=== PATIENT | female | born 1960 | race Caucasian/White ===

== ENCOUNTER → 2019-05-10 07:46 | Outpatient (BNVA) | payer OTHER, SELFPAY | PROVIDERS: Family Provider Nurse Practitioner Family; PCP Nurse Practitioner Family; Visit Provider Counselor Professional | DX: F42.2 Mixed obsessional thoughts and acts (principal); F33.2 Major depressive disorder, recurrent severe without psychotic features; F41.1 Generalized anxiety disorder | CPT/HCPCS: 90834 ==

== ENCOUNTER → 2019-05-22 08:46 | Outpatient (BNVA) | payer OTHER, SELFPAY | PROVIDERS: Family Provider Nurse Practitioner Family; PCP Nurse Practitioner Family; Visit Provider Counselor Professional | DX: F42.2 Mixed obsessional thoughts and acts (principal); F33.2 Major depressive disorder, recurrent severe without psychotic features; F41.1 Generalized anxiety disorder | CPT/HCPCS: 90834 ==

== ENCOUNTER → 2019-11-21 11:02 | Outpatient (BNVA) | payer OTHER, SELFPAY | PROVIDERS: Family Provider Nurse Practitioner Family; PCP Nurse Practitioner Family; Visit Provider Psychiatry & Neurology Psychiatry | DX: F41.1 Generalized anxiety disorder (principal) | CPT/HCPCS: 80061; 83036 ==

== ENCOUNTER → 2020-10-16 11:06 | Outpatient (BNVA) | payer OTHER, SELFPAY ==
[2019-11-23 12:05] VITALS: BP 124/79; BMI 25.1
== END ==
PROVIDERS: Family Provider Nurse Practitioner Family; PCP Nurse Practitioner Family; Visit Provider Psychiatry & Neurology Psychiatry
DX: F41.1 Generalized anxiety disorder (principal); Z79.899 Other long term (current) drug therapy
CPT/HCPCS: 80061; 83036

== ENCOUNTER → 2021-02-06 14:00 | Outpatient (BNVA) | payer BC, SELFPAY ==
[2020-10-17 15:24] VITALS: BP 97/77; BMI 26.7
== END ==
PROVIDERS: Family Provider Nurse Practitioner Family; PCP Nurse Practitioner Family; Referring Provider Physician Assistant Medical; Visit Provider Internal Medicine
DX: E05.90 Thyrotoxicosis, unspecified without thyrotoxic crisis or storm (principal); E04.9 Nontoxic goiter, unspecified; E03.8 Other specified hypothyroidism; Z87.891 Personal history of nicotine dependence
CPT/HCPCS: 99204

== ENCOUNTER 2021-02-21 13:58 | Outpatient (CLI) | payer BC, SELFPAY ==
[2020-10-17 15:24] VITALS: BP 97/77; BMI 26.7
--- NOTE | 2021-02-21 14:06 | MM_ITS ---
WS: [id number] BILATERAL DIGITAL SCREENING MAMMOGRAPHY WITH CAD CLINICAL INFORMATION: SCREENING HISTORY: Screening mammogram. No current complaints. COMPARISON: October 19, 2019 TECHNIQUE: Bilateral CC and MLO views. FINDINGS: The breasts are composed of heterogeneous fibroglandular density tissue, which can limit the detectio n of small underlying mass lesions. Punctate and lucent centered calcifications. No suspicious mass, asymmetry, calcifications, or architectural distortion. No evidence of malignancy. MM/[place] [id number] IMPRESSION: BI-RADS: 2-Benign FOLLOW UP: 1 Year Follow-up Recommend return to annual screening mammography.
== END 2021-02-21 13:59 | disposition home or self-care (01) ==
LOC: RADSHAW 14:03
PROVIDERS: PCP Physician Assistant Medical; Visit Provider Physician Assistant Medical
DX: Z12.31 Encounter for screening mammogram for malignant neoplasm of breast (principal)
CPT/HCPCS: 77067

== ENCOUNTER → 2021-08-08 08:49 | Outpatient (BNVA) | payer BC, SELFPAY ==
[2020-10-17 15:24] VITALS: BP 97/77; BMI 26.7
== END ==
PROVIDERS: PCP Family Medicine; Visit Provider Family Medicine
DX: Z91.09 Other allergy status, other than to drugs and biological substances (principal); E05.90 Thyrotoxicosis, unspecified without thyrotoxic crisis or storm; E03.8 Other specified hypothyroidism; B35.1 Tinea unguium; E04.9 Nontoxic goiter, unspecified; Z85.828 Personal history of other malignant neoplasm of skin
CPT/HCPCS: 80053; 80061; 84439; 84443; 84480; 85025

== ENCOUNTER 2022-04-30 14:37 | Outpatient (CLI) | payer BC, SELFPAY ==
[2020-10-17 15:24] VITALS: BP 97/77; BMI 26.7
--- NOTE | 2022-04-30 14:42 | MM_ITS ---
WS: [id number] BILATERAL 2D TOMOSYNTHESIS DIGITAL SCREENING MAMMOGRAPHY WITH CAD CLINICAL INFORMATION: SCREENING HISTORY: Screening mammogram. No current complaints. COMPARISON: February 21, 2021 and 2019 TECHNIQUE: Bilateral CC and MLO views. FINDINGS: The breasts are composed of heterogeneous fibroglandular density tissue, which can limit the detectio n of small underlying mass lesions. No suspicious mass, asymmetry, calcifications, or architectural d istortion. No evidence of malignancy. Incidental punctate and lucent centered calcifications. Prior b iopsy marker RIGHT breast MM/[place] [id number] IMPRESSION: BI-RADS: 2-Benign FOLLOW UP: 1 Year Follow-up Recommend return to annual screening mammography.
== END 2022-04-30 14:38 | disposition home or self-care (01) ==
LOC: RAD 14:37
PROVIDERS: PCP Family Medicine; Visit Provider Family Medicine
DX: Z12.31 Encounter for screening mammogram for malignant neoplasm of breast (principal)
CPT/HCPCS: 77067

== ENCOUNTER → 2022-10-02 07:41 | Outpatient (BNVA) | payer BC, SELFPAY ==
[2020-10-17 15:24] VITALS: BP 97/77; BMI 26.7
== END ==
PROVIDERS: PCP Family Medicine; Visit Provider Family Medicine
DX: Z13.6 Encounter for screening for cardiovascular disorders (principal); E55.9 Vitamin D deficiency, unspecified
CPT/HCPCS: 80053; 80061; 82306; 85025

== ENCOUNTER 2022-10-12 14:14 | Outpatient (CLI) | payer BC, SELFPAY ==
[2020-10-17 15:24] VITALS: BP 97/77; BMI 26.7
--- NOTE | 2022-10-12 14:30 | XR_ITS ---
WS: [id number] SCREENING DEXA SCAN [employer] CLINICAL INFORMATION: postmenopausal COMPARISON: None. FINDINGS: The L1-L4 bone mineral density measures 0.787 g/cm2. This corresponds to a T score score of -3.3 and Z score of -2.1. Left femoral neck bone mineral density measures 0.779 g/cm2. This corresponds to a T score of -1.8 an d Z score of -0.9. Right femoral neck bone mineral density measures 0.720 g/cm2. This corresponds to a T score -2.3of an d Z score of -1.4. Mean femoral neck bone mineral density measures 0.750 g/cm2. This corresponds to a T score of -2.0 an d Z score of -1.1. XR/XR DEXA axial skeleton* [id number] IMPRESSION: Osteoporosis lumbar spine. Osteopenia femoral necks. Patient's FRAX calculated 10 year probability for major osteoporotic fracture i s 11.8 % and osteoporotic hip fracture is 2.3%.
== END 2022-10-12 14:15 | disposition home or self-care (01) ==
LOC: RAD 14:18
PROVIDERS: PCP Family Medicine; Visit Provider Family Medicine
DX: N95.9 Unspecified menopausal and perimenopausal disorder (principal); M81.0 Age-related osteoporosis without current pathological fracture; M85.88 Other specified disorders of bone density and structure, other site
CPT/HCPCS: 77080

== ENCOUNTER 2022-11-02 09:54 | Outpatient (CLI) | payer BC, SELFPAY ==
[2020-10-17 15:24] VITALS: BP 97/77; BMI 26.7
--- NOTE | 2022-11-02 10:15 | CT_ITS ---
WS: [id number] LDCT LUNG CANCER SCREENING HISTORY: screening TECHNIQUE: Axial imaging performed from the apices to 1 cm below the costophrenic angles. Coronal and sagittal reformats are submitted with axial MIP series. All CT scans at [facility] use at least one of these dose optimization techniques: automated exposure control; mA and/or kV adjustment per patient size (includes targeted exams where dose is matched to clinical indication); or iterativ e reconstruction. DLP: 56.20 mGy.cm DIvol: Mean CTDIvol: 1.00 (mGy) COMPARISON: None available. Diagnostic quality: Satisfactory Lungs: No pulmonary mass or nodule. No endobronchial lesions. Heart: Normal size heart with no pericardial effusion.. Other findings: No mediastinal or hilar adenopathy. Normal size aorta. Small hiatal hernia. No adrena l mass. CT/CT lung screening [id number] IMPRESSION: LUNG-RADS: 1-Negative FOLLOW UP: 12 Month: Continue annual screening with LDCT OTHER FINDINGS (S MODIFIER): None.
== END 2022-11-02 09:55 | disposition home or self-care (01) ==
PROVIDERS: PCP Family Medicine; Visit Provider Family Medicine
DX: Z12.2 Encounter for screening for malignant neoplasm of respiratory organs (principal); Z87.891 Personal history of nicotine dependence
CPT/HCPCS: 71271; 80053; 80061; 82306; 85025

== ENCOUNTER 2022-11-18 08:15 | Day surgery (SDC) | payer BC, SELFPAY ==
[2020-10-17 15:24] VITALS: BP 97/77; BMI 26.7
[2022-11-17 08:27] VITALS: BMI 28.3
--- NOTE | 2022-11-18 08:36 | W.PM.OPSUD ---
Surgery/Procedure H&P Update DATE OF PROCEDURE: November 18, 2022 DATE H&P PERFORMED: 10/21/22 H&P UPDATE INFORMATION: I have reviewed H&P completed within last 30 days, I have examined patient prior to procedure and No changes to prior documentation PLANNED PROCEDURE: Operation Date: 11/18/22 09:00 Proposed Procedures p Colonoscopy 11072,[z12.11(Not Applicable) - Jordon Rubalcava, DO
[2022-11-18] MEDS: sodium chloride 0.9% 1,000 ML 30 ML IV (08:46)
[2022-11-18 08:48] VITALS: BP 117/75; PULSE 72; RESP 18; TEMP 36.9; O2SAT 94
--- NOTE | 2022-11-18 09:05 | ANES.PREANE2 ---
Pre-Anesthetic Assessment Height/Weight: Height 1.55 m Weight 68.039 kg Temp Pulse Resp BP Pulse Ox O2 Del Method 98.5 F 72 18 117/75 94 Room Air 11/18/22 08:48 11/18/22 08:48 11/18/22 08:48 11/18/22 08:48 11/18/22 08:48 11/18/22 08:48 Operation Date: 11/18/22 09:00 Proposed Procedures p Colonoscopy 51001,[z12.11(Not Applicable) - Jordon Rubalcava DO Familial anesthetic complications: None Was Beta Gus taken within 24 hours: N/A Was Clonidine taken within 24 hours: N/A Last intake: Intake Last Liquid Date 11/17/22 Last Liquid Time 22:00 Last Solid Date 11/16/22 Last Solid Time 16:00 Social No alcohol and No tobacco Exam alert, oriented x 3, clear to auscultation bilaterally and regular rate & rhythm Airway Mallampati: Class I Dentition: full CV/HEM Hypertension GI Gastroesophageal Reflux Disease Anesthetic Plan ASA status: 2 Anesthesia: MAC Risk of > 500 ml blood loss (7ml/kg in children): No Medications/Allergies Home Medications Medication Instructions Recorded Confirmed Last Taken Type cetirizine 10 mg capsule (Zyrtec) 10 mg PO QDAY 05/10/19 11/17/22 11/16/22 History flaxseed oil 1,000 mg capsule 1,300 mg PO QDAY 05/10/19 11/17/22 11/16/22 History fluticasone propionate 50 2 spray intranasal QDAY 05/10/19 11/17/22 11/16/22 History mcg/actuation nasal spray,suspension (Allergy Relief (fluticasone)) magnesium 250 mg tablet 250 mg PO .HS 05/10/19 11/17/22 11/16/22 History cyclobenzaprine 10 mg tablet 10 mg PO TID PRN muscle spasm 05/17/20 11/17/22 11/16/22 History meloxicam 7.5 mg tablet (Mobic) 7.5 mg PO DAILY PRN Muscle Pain 10/16/20 11/17/22 11/16/22 History cholecalciferol (vitamin D3) 1,250 See Rx Instructions PO DAILY 12/22/21 11/17/22 11/16/22 History mcg (50,000 unit) capsule tretinoin 0.05 % topical cream 1 applic topical .qhs #45 grams 12/30/21 11/17/22 Unknown Rx cyanocobalamin (vitamin B-12) 5,000 mcg PO DAILY 05/05/22 11/17/22 11/16/22 History 5,000 mcg capsule zinc sulfate 25 mg zinc (110 mg) 25 mg PO DAILY 05/05/22 11/17/22 11/16/22 History tablet (Orazinc) B6 0.85 mg-folic 200 1 tab PO DAILY 06/08/22 11/17/22 11/16/22 History [id number] oral chewable tablet (Neuriva Plus) aripiprazole 15 mg tablet (Abilify) 15 mg PO DAILY #90 tabs 08/24/22 11/17/22 11/16/22 Rx bupropion HCl 300 mg 24 hr tablet, 300 mg PO QAM #90 tabs 08/24/22 11/17/22 11/16/22 Rx extended release (Wellbutrin XL) multivitamin 1 tab PO DAILY 08/24/22 11/17/22 11/16/22 History prazosin 5 mg capsule 5 mg PO .HS #90 caps 08/24/22 11/17/22 11/16/22 Rx sertraline 100 mg tablet (Zoloft) 150 mg PO DAILY #135 tabs 08/24/22 11/17/22 11/16/22 Rx trazodone 100 mg tablet 100 mg PO .HS #90 tabs 08/24/22 11/17/22 11/16/22 Rx azelastine 137 mcg (0.1 %) nasal 2 spray intranasal BID 90 days #90 10/02/22 11/17/22 11/16/22 Rx spray aerosol mL alendronate 70 mg tablet (Fosamax) 70 mg PO .weekly #12 tabs 11/06/22 11/17/22 11/15/22 Rx calcium carbonate 600 mg calcium 1,200 mg PO DAILY 11/18/22 11/18/22 11/16/22 History (1,500 mg) tablet (Calcium) Allergies Allergy/AdvReac Type Severity Reaction Status Date / Time phenazopyridine Allergy Severe Rash Verified 11/17/22 08:16 [From Pyridium] bodywide, Throat swelled bacitracin AdvReac Intermediate Rash Verified 11/17/22 08:16 [From Neosporin ([id number])] ibuprofen AdvReac Intermediate Diarrhea & Verified 11/17/22 08:16 Vomiting neomycin AdvReac Intermediate Rash Verified 11/17/22 08:16 [From Neosporin ([id number])] polymyxin B AdvReac Intermediate Rash Verified 11/17/22 08:16 [From Neosporin ([id number])] Current Medications Generic Name Dose Route Start Last Admin Trade Name Freq PRN Reason Stop Dose Admin Sodium Chloride 1,000 mls @ 30 mls/hr 11/18/22 08:30 11/18/22 08:46 Sodium Chloride 0.9% IV 11/19/22 08:29 30 mls/hr .Q24H RIKA Administration PFSH Anesthesia Medical History Basal cell carcinoma of skin of face Biceps tendonosis of left shoulder Carpal tunnel syndrome of left wrist Carpal tunnel syndrome of right wrist 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 Eye injury Right eye H/O needle biopsy Of right breast - benign History of chicken pox 5 or 6 y/o History of sinus problem Left rotator cuff tear Mononucleosis Mumps Psychiatric care Right shoulder injury Rupture of plantaris tendon Squamous cell skin cancer, face Trigger finger Surgical History History of ankle surgery Left History of bunionectomy Right History of total right knee replacement Right History of tubal ligation Family History Mother CAD (coronary artery disease), Onset Age: 60 Hyperlipidemia Hypertension Father Hypertension Grandmother Cancer Colon Cancer Brother Cancer Renal Cancer Social History Smoking and tobacco status: former smoker Quit status (tobacco): has quit using tobacco Year quit tobacco: 05/2015 Second hand smoke exposure: No Smoking risk assessment/counseling performed?: No Alcohol intake: former Desire information about alcohol rehabilitation?: No Counseling given: No Substance/Drug Use: never Desire information about substance/drug rehabilitation?: No Counseling given: No Adopted: No Caregiver/support person: No Lives independently: Yes Housing: House Marital status: Number of children: 1 Number of grandchildren: 0 Highest education level completed: Bachelor's Degree service: No Current occupational status: employed 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
[2022-11-18 09:47] VITALS: BP 102/74; PULSE 77; RESP 18; TEMP 36.3; O2SAT 93
[2022-11-18 09:56] VITALS: BP 97/74; PULSE 73; RESP 18; TEMP 36.2; O2SAT 93
--- NOTE | 2022-11-18 10:00 | ANE.PACU2 ---
Inpatient post-anesthesia follow up: Airway intact: Yes Vital signs: Temperature 97.1 F Pulse Rate 73 Respiratory Rate 18 Blood Pressure 97/74 Pulse Oximetry 93 Oxygen Delivery Me thod Room Air Oxygen Flow Rate Fraction of Inspir ed Oxygen Hydration adequate: Yes Nausea and vomiting: No Pain level: 1 Mental status: Baseline
== END 2022-11-18 10:13 | disposition home or self-care (01) ==
PROVIDERS: PCP Family Medicine; Visit Provider Surgery
PROC: 0DJD8ZZ Inspection of Lower Intestinal Tract, Via Natural or Artificial Opening Endoscopic (ICD-10-PCS; CPT 45378; principal; 2022-11-18 09:00)
DX: Z12.11 Encounter for screening for malignant neoplasm of colon (principal); Z87.891 Personal history of nicotine dependence; Z85.828 Personal history of other malignant neoplasm of skin
CPT/HCPCS: 45378; J2704; J7030

== ENCOUNTER → 2022-12-04 15:32 | Outpatient (BNVA) | payer BC, SELFPAY ==
[2020-10-17 15:24] VITALS: BP 97/77; BMI 26.7
== END ==
PROVIDERS: PCP Family Medicine; Visit Provider Family Medicine
DX: R53.83 Other fatigue (principal)
CPT/HCPCS: 84439; 84443

== ENCOUNTER 2022-12-21 14:34 | Outpatient (CLI) | payer BC, SELFPAY ==
[2020-10-17 15:24] VITALS: BP 97/77; BMI 26.7
--- NOTE | 2022-12-21 15:00 | US_ITS ---
WS: [id number] THYROID ULTRASOUND HISTORY: goiter COMPARISON: None available. Right lobe: 1.5 cm x 2.0 cm x 3.5 cm (w x ap x l). Volume: 5.6 cm3. Normal sized gland. There is a hypoechoic well-circumscribed nodule along the inferior posterior RIGH T thyroid. Nodule measures 7 x 4 x 11 mm. This may be a benign lymph node. This is not definitely wit hin the thyroid. Left lobe: 1.3 cm x 1.3 cm x 4.0 cm (w x ap x l). Volume: 3.5 cm3. Normal sized gland. Colloid cysts are subcentimeter. No solid nodule. Isthmus: 0.3 cm. IMPRESSION: 1. Hypoechoic well-circumscribed nodule posterior to the RIGHT thyroid. This may be external to the t hyroid gland. Potentially could represent a small lymph node. Consider follow-up ultrasound in 6 hansel hs. 2. Small colloid cysts LEFT thyroid.
== END 2022-12-21 14:35 | disposition home or self-care (01) ==
LOC: RAD 14:35
PROVIDERS: PCP Family Medicine; Visit Provider Family Medicine
DX: E04.9 Nontoxic goiter, unspecified (principal); E04.1 Nontoxic single thyroid nodule
CPT/HCPCS: 76536

== ENCOUNTER 2023-01-13 14:00 | Outpatient (CLI) | payer BC, SELFPAY ==
[2020-10-17 15:24] VITALS: BP 97/77; BMI 26.7
== END 2023-01-13 14:01 | disposition home or self-care (01) ==
LOC: SLEEP 01-18 09:55
PROVIDERS: PCP Family Medicine; Visit Provider Family Medicine
DX: G47.33 Obstructive sleep apnea (adult) (pediatric) (principal); G47.10 Hypersomnia, unspecified
CPT/HCPCS: G0399

== ENCOUNTER 2023-05-31 15:19 | Outpatient (CLI) | payer BC, SELFPAY ==
[2020-10-17 15:24] VITALS: BP 97/77; BMI 26.7
--- NOTE | 2023-05-31 15:22 | MM_ITS ---
WS: [id number] BILATERAL 2D DIGITAL SCREENING MAMMOGRAPHY WITH CAD CLINICAL INFORMATION: screening HISTORY: Screening mammogram. No current complaints. COMPARISON: 04/30/2022 TECHNIQUE: Bilateral CC and MLO views. FINDINGS: The breasts are composed of heterogeneous fibroglandular density tissue, which can limit the detectio n of small underlying mass lesions. No suspicious mass, asymmetry, calcifications, or architectural d istortion. No evidence of malignancy. Lucent centered calcifications. Stable biopsy clip with adjacen t nodule RIGHT breast. IMPRESSION: MM/[place] [id number] BI-RADS: 2-Benign FOLLOW UP: 1 Year Follow-up Recommend return to annual screening mammography.
== END 2023-05-31 15:20 | disposition home or self-care (01) ==
LOC: RAD 15:20
PROVIDERS: PCP Family Medicine; Visit Provider Family Medicine
DX: Z12.31 Encounter for screening mammogram for malignant neoplasm of breast (principal); R92.323 Mammographic fibroglandular density, bilateral breasts; R92.1 Mammographic calcification found on diagnostic imaging of breast
CPT/HCPCS: 77063; 77067

== ENCOUNTER 2023-06-23 14:56 | Outpatient (CLI) | payer BC, SELFPAY ==
[2020-10-17 15:24] VITALS: BP 97/77; BMI 26.7
--- NOTE | 2023-06-23 15:00 | US_ITS ---
WS: [id number] THYROID ULTRASOUND HISTORY: Nodule to right Thyroid COMPARISON: 12/21/2022 Right lobe: 1.5 cm x 1.5 cm x 3.9 cm (w x ap x l). Volume: 4.2 cm3. Reidentified is the hypoechoic nodule along the posterior surface of the inferior RIGHT thyroid measu ring 7 x 9 x 5 mm. This could be an exophytic thyroid nodule or small posterior lymph node. Due to th e location parathyroid adenoma within the differential. Left lobe: 1.3 cm x 1.5 cm x 3.5 cm (w x ap x l). Volume: 3.2 cm3. Normal sized gland. There are a few very tiny cystic nodules throughout the thyroid. These are most c onsistent with colloid cyst. Isthmus: 0.3 cm. IMPRESSION: 1. No change in size of the hypoechoic well-circumscribed nodule posterior to the inferior RIGHT th yroid. This may be part of the thyroid or posterior to the thyroid gland. Differential includes a sma ll benign lymph node or exophytic thyroid nodule. Due to the location normal parathyroid gland may ap pear similar. 2. Very tiny colloid nodules in the LEFT thyroid.
== END 2023-06-23 14:57 | disposition home or self-care (01) ==
LOC: RAD 14:57
PROVIDERS: PCP Family Medicine; Visit Provider Family Medicine
DX: E04.1 Nontoxic single thyroid nodule (principal)
CPT/HCPCS: 76536

== ENCOUNTER → 2023-10-01 08:56 | Outpatient (BNVA) | payer BC, SELFPAY ==
[2020-10-17 15:24] VITALS: BP 97/77; BMI 26.7
== END ==
PROVIDERS: PCP Family Medicine; Visit Provider Family Medicine
DX: Z13.6 Encounter for screening for cardiovascular disorders (principal); Z01.419 Encounter for gynecological examination (general) (routine) without abnormal findings; E55.9 Vitamin D deficiency, unspecified; Z86.39 Personal history of other endocrine, nutritional and metabolic disease
CPT/HCPCS: 80053; 80061; 82306; 85025; 87624

== ENCOUNTER → 2023-12-27 15:24 | Outpatient (BNVA) | payer BC, SELFPAY ==
[2020-10-17 15:24] VITALS: BP 97/77; BMI 26.7
== END ==
PROVIDERS: PCP Family Medicine
DX: Z96.651 Presence of right artificial knee joint (principal); M25.561 Pain in right knee; Z98.890 Other specified postprocedural states
CPT/HCPCS: 73562

== ENCOUNTER 2024-01-06 14:28 | Outpatient (CLI) | payer BC, SELFPAY ==
[2020-10-17 15:24] VITALS: BP 97/77; BMI 26.7
--- NOTE | 2024-01-06 14:30 | CT_ITS ---
WS: [email or web address] LDCT LUNG CANCER SCREENING TECHNIQUE: Noncontrast CT of the chest with coronal and sagittal reformatted images. CLINICAL INFORMATION: LDCT COMPARISON: 2022 DLP: 46.00 mGy.cm DIvol: Mean CTDIvol: 0.90 (mGy) All CT scans at [facility] use at least one of these dose optimization techniques: automat ed exposure control; mA and/or kV adjustment per patient size (includes targeted exams where dose is matched to clinical indication); or iterative reconstruction. FINDINGS: No new suspicious pulmonary parenchymal normalities. Normal caliber thoracic aorta. No mediastinal or hilar lymphadenopathy. No axillary lymphadenopathy. Adrenal glands are normal. Tiny esophageal hernia. Mild thoracic curve. Mild thoracic kyphosis. CT/CT lung screening [id number] IMPRESSION: LUNG-RADS: 1-Negative FOLLOW UP: 12 Month: Continue annual screening with LDCT
== END 2024-01-06 14:29 | disposition home or self-care (01) ==
LOC: RAD 14:28
DX: Z12.2 Encounter for screening for malignant neoplasm of respiratory organs (principal); Z87.891 Personal history of nicotine dependence
CPT/HCPCS: 71271

== ENCOUNTER 2024-06-07 15:07 | Outpatient (CLI) | payer BC, SELFPAY ==
[2020-10-17 15:24] VITALS: BP 97/77; BMI 26.7
--- NOTE | 2024-06-07 | MM_ITS ---
WS: [id number] Bilateral screening 3D tomosynthesis digital mammogram, 06/07/2024 3:26 PM Clinical Data: ANNUAL SCREENING Comparison: 05/31/2023, 04/30/2022, 02/21/2021, 11/09/2019, 10/19/2019. Findings: No spiculated masses or clustered calcifications are seen. There are no secondary signs of carcinoma. MM/MM scr BI tomosynthesis [id number] Impression: Negative bilateral mammogram unchanged. Recommend annual screening mammograms. BIRADS: 1 - Negative FOLLOW UP: 1 Year Follow-up DENSITY: The breasts are heterogeneously dense, which may obscure small masses. The CAD loom checker was used
== END 2024-06-07 15:08 | disposition home or self-care (01) ==
PROVIDERS: PCP Family Medicine; Visit Provider Family Medicine
DX: Z12.31 Encounter for screening mammogram for malignant neoplasm of breast (principal); R92.333 Mammographic heterogeneous density, bilateral breasts
CPT/HCPCS: 77063; 77067

== ENCOUNTER → 2024-06-13 15:48 | Outpatient (BNVA) | payer BC, SELFPAY ==
[2020-10-17 15:24] VITALS: BP 97/77; BMI 26.7
== END ==
PROVIDERS: PCP Family Medicine; Visit Provider Family Medicine
DX: S46.812A Strain of other muscles, fascia and tendons at shoulder and upper arm level, left arm, initial encounter (principal); X58.XXXA Exposure to other specified factors, initial encounter
CPT/HCPCS: 80053

== ENCOUNTER → 2024-06-15 14:22 | Outpatient (BNVA) | payer BC, SELFPAY ==
[2020-10-17 15:24] VITALS: BP 97/77; BMI 26.7
== END ==
PROVIDERS: PCP Family Medicine; Visit Provider Family Medicine
DX: E83.52 Hypercalcemia (principal)
CPT/HCPCS: 82310; 83970

== ENCOUNTER 2024-07-11 05:00 | Outpatient (RCR) | payer BC, SELFPAY ==
[2020-10-17 15:24] VITALS: BP 97/77; BMI 26.7
== END 2024-08-09 23:59 | disposition home or self-care (01) ==
LOC: SPT 05:00
PROVIDERS: Visit Provider Family Medicine
DX: S46.812D Strain of other muscles, fascia and tendons at shoulder and upper arm level, left arm, subsequent encounter (principal); X58.XXXD Exposure to other specified factors, subsequent encounter
CPT/HCPCS: 97110; 97140; 97161

== ENCOUNTER 2024-08-10 05:00 | Outpatient (RCR) | payer BC, SELFPAY ==
[2020-10-17 15:24] VITALS: BP 97/77; BMI 26.7
== END 2024-09-01 09:06 | disposition home or self-care (01) ==
LOC: SPT 05:00
PROVIDERS: Visit Provider Family Medicine
DX: S46.812D Strain of other muscles, fascia and tendons at shoulder and upper arm level, left arm, subsequent encounter (principal); X58.XXXD Exposure to other specified factors, subsequent encounter
CPT/HCPCS: 97110; 97164

== ENCOUNTER 2024-11-17 16:22 | Emergency (ER) | payer BC, SELFPAY ==
--- OUTSIDE RECORDS SUMMARY | 2015-10-09 19:00 | XMS_ITS | Continuity of Care Document ---
Author Organization [facility] Address [address] [place] [address] Phone Care Team Providers Care Corrosion Engineer Name Role Phone Teresa Hinojosa Unavailable Unavailable Advance Directives Directive Yes / No Effective Date File Name No Information Encounters Encounter Description Practice Location Reason(s) For Visit Diagnoses Date Provider Providers Copied on Encounter [facility], [address] [facility] [address], [place], [place], [id number], [place] tel:[phone] 50 [facility] No Information [phone] Ivory Moore. [address], [address], [place], [place], [id number], [place]. tel:[phone] Family History Family Member Type Diagnosis Age At Onset No Information Payers Payer name Insurance type Covered constitution party ID Authoriza tion(s) No Information Social History Type Description Quantity Date Captured Comments Sex Female Smoking Status No Information Chief Complaint And Reason For Visit No Information Reason For Referral Reason For Referral No Information History Of Present Illness Encounter Date Complaint History Of Prese nt Illness No Information Functional Status Date Functional Assessmen t No Information Instructions Date Instruction Additional Infor mation No Information Assessments Type Assessment Date No Information Patient Care Teams Name Effective Dates (start - stop) Status Members No Information
[2020-10-17 15:24] VITALS: BP 97/77; BMI 26.7
--- NOTE | 2024-11-17 16:23 | XRR_ITS ---
PROCEDURE INFORMATION: Exam: XR Right Wrist Exam date and time: 11/17/2024 4:31 PM Age: 63 years old Clinical indication: Injury or trauma; Blunt trauma (contusions or hematomas); Injury details: Fall, right wrist pain. ; Additional info: Injury/pain TECHNIQUE: Imaging protocol: Radiologic exam of the right wrist. Views: 3 or more views. COMPARISON: No relevant prior studies available. FINDINGS: Bones/joints: Mildly comminuted transverse fracture involves the distal radial metaphysis. The fracture is moderately impacted and displaced dorsally by 7 mm. No other fractures. No dislocation. Soft tissues: Soft tissue swelling surrounds the wrist. XR/XR wrist RT min 3V* [id number] IMPRESSION: Comminuted distal right radius fracture which is displaced and impacted.
[2024-11-17 16:24] VITALS: BP 130/83; PULSE 108; RESP 16; TEMP 36.8; O2SAT 96; BMI 25.6
--- OUTSIDE RECORDS SUMMARY | 2024-11-17 16:28 | XMS_ITS | Encounter Summary ---
Author Organization [facility] Address [address] [place] [address] Care Team Providers Care Repairing Calibrator Name Role Phone Elizabeth Orzoco MD Primary Care Provider [phone] Encounter Details Date Type Department Care Team (Late st Contact Info) Description 03/13/2019 Lab Requisition [facility] Services [place] [address] [address] Oc Flores MD [address] [place] [address] Social History Tobacco Use Types Packs/Day Years Used Date Smoking Tobacco: Former Cigarettes 1 33 1 981 - 2014 Smokeless Tobacco: Never Alcohol Use Standard Drinks/Week Comments Not Currently 0 (1 standard drink = 0.6 oz pur e alcohol) Comments No Sex and Gender Information Value Date Recorded Sex Assigned at Not on file Legal Sex Female 2:07 PM CDT Gender Identity Not on file Sexual Orientation Not on file documented as of this encounter Plan of Treatment Not on file documented as of this encounter Procedures Procedure Name Priority Date/Time Associated Diagnosis Comments PTH INTACT Routine 03/13/2019 8:09 PM ORDER PICKER BASIC METABOLIC PANEL Routine 03/13/2019 8:09 PM ORDER PICKER documented in this encounter Results * PTH INTACT (03/13/2019 8:09 PM ORDER PICKER) PTH INTACT 47.0 15.0 - 65.0 pg/mL 03/14/2019 9:03 PM ORDER PICKER [facility] Blood Collection / Unknown 03/13/2019 8:09 PM ORDER PICKER 03/13/2019 10:17 PM ORDER PICKER Oc Flores MD CHEMISTRY ORDERABLES Margaret ashly Result [facility] CLIA# [id number] [facility] [place] [address] * (ABNORMAL) BASIC METABOLIC PANEL (03/13/2019 8:09 PM ORDER PICKER) SODIUM 140 136 - 145 mmol/L 03/13/2019 10:53 PM [facility] POTASSIUM 4.4 3.5 - 5.1 mmol/L 03/13/2019 10:53 PM [facility] CHLORIDE 104 98 - 107 mmol/L 03/13/2019 10:53 PM [facility] CO2 27 22 - 29 mmol/L 03/13/2019 10:53 PM [facility] CALCIUM 10.7(H) 8.6 - 10.0 mg/dL 03/13/2019 10:53 PM [facility] BUN 16 6 - 20 mg/dL 03/13/2019 10:53 PM [facility] CREATININE 0.70 0.51 - 0.95 mg/dL 03/13/2019 10:53 PM [facility] GLUCOSE 92 74 - 99 mg/dL 03/13/2019 10:53 PM [facility] GFR >60 >=60 mL/min/1.7 3 sq meter 03/13/2019 10:53 PM [facility] Comment: eGFR has not been validated for use in the elderly (> 70 years of age), women, patients with serious co-morbid conditions, or persons with extremes of body size or muscle mass and should also be interpreted with caution in patients with acute kidney failure, dialysis dependent patients, patients reporting exceptional dietary intake (e.g. vegetarian diet, high protein diets, creatine supplementation), and patients with severe liver disease. Based on National Kidney Disease Education Program If patient is , please refer to the GFR result. GFR, >60 >=60 mL/min/1.7 3 sq meter 03/13/2019 10:53 PM ORDER PICKER [facility] ANION GAP 9(L) 12 - 20 mmol/L 03/13/2019 10:53 PM ORDER PICKER [facility] Blood Collection / Unknown 03/13/2019 8:09 PM ORDER PICKER 03/13/2019 10:17 PM ORDER PICKER Oc Flores MD CHEMISTRY ORDERABLES Margaret l Result [facility] CLIA # [id number] [address] [address] documented in this encounter Visit Diagnoses Not on filedocumented in this encounter Additional Health Concerns Infection Onset Date Last Indicated Resolved Time R/O COVID-19 03/04/2020 03/05/2020 03/06/2020 3:31 AM ORDER PICKER documented as of this encounter Care Teams Repairing Calibrator Relationship Specialty Start Date End Date Elizabeth Orozco MD [address] [id number] PCP - General Family Practice 10/26/19 documented as of this encounter
--- OUTSIDE RECORDS SUMMARY | 2024-11-17 16:28 | XMS_ITS | Encounter Summary ---
Author Organization [facility] Address [address] [place] [address] Care Team Providers Care Deck Supervisor Name Role Phone Elizabeth Orozco MD Primary Care Provider [phone]- [phone] Encounter Details Date Type Department Care Team (Late st Contact Info) Description 02/27/2019 Lab Requisition [facility] General Laboratory Services [place] [address] [place] [address] Derrek Sotomayor, DO NO ADDRESS ON FILE Social History Tobacco Use Types Packs/Day Years Used Date Smoking Tobacco: Former Cigarettes 1 33 1 981 - 2013 Smokeless Tobacco: Never Alcohol Use Standard Drinks/Week [...] Procedure Name Priority Date/Time Associated Diagnosis Comments CBC WITH DIFFERENTIAL Routine 02/27/2019 9:00 PM MOCK UP BUILDER TSH Routine 02/27/2019 9:00 PM MOCK UP BUILDER COMPREHENSIVE METABOLIC PANEL Routine 02/27/2019 9:00 PM MOCK UP BUILDER documented in this encounter Results * TSH (02/27/2019 9:00 PM MOCK UP BUILDER) TSH 2.46 0.27 - 4.20 uIU/mL 02/27/2019 11:23 PM MOCK UP BUILDER [facility] Blood Collection / Unknown 02/27/2019 9:00 PM MOCK UP BUILDER 02/27/2019 10:38 PM MOCK UP BUILDER us Derrek Sotomayor DO CHEMISTRY ORDERABLES Final Resu lt [facility] CLIA # [id number] [address] [place] [address] * (ABNORMAL) COMPREHENSIVE METABOLIC PANEL (02/27/2019 9:00 PM MOCK UP BUILDER) SODIUM 142 136 - 145 mmol/L 02/27/2019 11:42 PM [facility] POTASSIUM 4.0 3.5 - 5.1 mmol/L 02/27/2019 11:42 PM [facility] CHLORIDE 104 98 - 107 mmol/L 02/27/2019 11:42 PM [facility] CO2 27 22 - 29 mmol/L 02/27/2019 11:42 PM [facility] CALCIUM 10.9(H) 8.6 - 10.0 mg/dL 02/27/2019 11:42 PM [facility] BUN 15 6 - 20 mg/dL 02/27/2019 11:42 PM [facility] CREATININE 0.70 0.51 - 0.95 mg/dL 02/27/2019 11:42 PM [facility] GLUCOSE 96 74 - 99 mg/dL 02/27/2019 11:42 PM [facility] TOTAL PROTEIN 7.5 6.6 - 8.7 g/dL 02/27/2019 11:42 PM [facility] ALBUMIN 4.4 3.5 - 5.2 g/dL 02/27/2019 11:42 PM [facility] BILIRUBIN TOTAL <0.2 <=1.2 mg/dL 02/27/2019 11:42 PM [facility] ALKALINE PHOSPHATASE 113(H) 35 - 104 U/L 02/27/2019 11:42 PM [facility] AST 19 10 - 35 U/L 02/27/2019 11:42 PM [facility] ALT 12 10 - 35 U/L 02/27/2019 11:42 PM [facility] GFR >60 >=60 mL/min/1.7 3 sq meter 02/27/2019 11:42 PM [facility] Comment: eGFR has not been validated for [...] GFR, >60 >=60 mL/min/1.7 3 sq meter 02/27/2019 11:42 PM [facility] ANION GAP 11(L) 12 - 20 mmol/L 02/27/2019 11:42 PM [facility] Blood Collection / Unknown 02/27/2019 9:00 PM MOCK UP BUILDER 02/27/2019 10:38 PM MOCK UP BUILDER us Derrek Sotomayor DO CHEMISTRY ORDERABLES Final Resu lt [facility] CLIA # [id number] [address] [place] [address] * (ABNORMAL) CBC WITH DIFFERENTIAL (02/27/2019 9:00 PM MOCK UP BUILDER) WBC 7.5 4.0 - 10.0 K/uL 02/27/2019 11:00 PM [facility] RBC 4.25 3.93 - 5.22 M/uL 02/27/2019 11:00 PM [facility] HEMOGLOBIN 12.9 11.2 - 15.7 g/dL 02/27/2019 11:00 PM [facility] HEMATOCRIT 39.6 34.1 - 44.9 % 02/27/2019 11:00 PM [facility] MCV 93.2 79.4 - 94.8 fL 02/27/2019 11:00 PM [facility] MCH 30.4 25.6 - 32.2 pg 02/27/2019 11:00 PM [facility] MCHC 32.6 32.2 - 35.5 g/dL 02/27/2019 11:00 PM [facility] RDW 12.4 11.0 - 14.5 % 02/27/2019 11:00 PM [facility] RDW-STDEV 41.2 36.9 - 56.9 fL 02/27/2019 11:00 PM [facility] PLATELETS 315 163 - 337 K/uL 02/27/2019 11:00 PM [facility] MPV 11.3 10.0 - 14.8 fL 02/27/2019 11:00 PM [facility] NEUTROPHILS 64 34 - 71 % 02/27/2019 11:00 PM [facility] LYMPHOCYTES 25 19 - 52 % 02/27/2019 11:00 PM [facility] MONOCYTES 9 5 - 13 % 02/27/2019 11:00 PM [facility] EOSINOPHILS 2 1 - 6 % 02/27/2019 11:00 PM [facility] BASOPHILS 0 0 - 1 % 02/27/2019 11:00 PM [facility] IMMATURE GRANULOCYTES 0 % 02/27/2019 11:00 PM [facility] NEUTROPHIL ABSOLUTE 4.77 1.56 - 6.13 K/uL 02/27/2019 11:00 PM [facility] LYMPHOCYTE ABSOLUTE 1.88 1.20 - 3.40 K/uL 02/27/2019 11:00 PM [facility] MONOCYTE ABSOLUTE 0.65(H) 0.24 - 0.36 K/uL 02/27/2019 11:00 PM [facility] EOSINOPHIL ABSOLUTE 0.14 0.04 - 0.36 K/uL 02/27/2019 11:00 PM [facility] BASOPHILS ABSOLUTE 0.03 0.01 - 0.08 K/uL 02/27/2019 11:00 PM [facility] IMMATURE GRANULOCYTES ABSOLUTE 0.01 K/uL 02/27/2019 11:00 PM [facility] Blood Collection / Unknown 02/27/2019 9:00 PM MOCK UP BUILDER 02/27/2019 10:38 PM MOCK UP BUILDER us Derrek Sotomayor DO HEMATOLOGY ORDERABLES Final Res ult [facility] # [id number] [address] [address] documented in this encounter Visit Diagnoses Not on filedocumented in this encounter Additional Health Concerns Infection Onset Date Last Indicated Resolved Time R/O COVID-19 03/04/2020 03/05/2020 03/06/2020 3:31 AM MOCK UP BUILDER documented as of this encounter Care Teams Deck Supervisor Relationship Specialty Start Date End Date Elizabeth Orozco MD [address] [phone] PCP - General Family Practice 10/26/19 documented as of this encounter
--- OUTSIDE RECORDS SUMMARY | 2024-11-17 16:28 | XMS_ITS | Encounter Summary ---
Author Organization [facility] Address [address] [place] [address] Care Team Providers Care Armature Winder Helper Repair Name Role Phone Elizabeth Orozco MD Primary Care Provider [phone] Encounter Details Date Type Department Care Team (Late st Contact Info) Description 03/20/2019 Lab Requisition [facility] Laboratory Services [place] [address] [address] Elvira Sanford, [facility] [address] [facility] [address] [place] [address] Social History Tobacco Use Types [...] Procedure Name Priority Date/Time Associated Diagnosis Comments PROTEIN ELECTROPHORESIS W/REFLEX,URINE Routine 03/20/2019 9:41 PM MEASUREMENT AND VERIFICATION ENGINEER CALCITRIOL Routine 03/20/2019 9:41 PM MEASUREMENT AND VERIFICATION ENGINEER TSH Routine 03/20/2019 9:41 PM MEASUREMENT AND VERIFICATION ENGINEER PROTEIN ELECTROPHORESIS W/REFLEX,SERUM Routine 03/20/2019 9:41 PM MEASUREMENT AND VERIFICATION ENGINEER BASIC METABOLIC PANEL Routine 03/20/2019 9:41 PM MEASUREMENT AND VERIFICATION ENGINEER documented in this encounter Results * PROTEIN ELECTROPHORESIS W/REFLEX,URINE (03/20/2019 9:41 PM MEASUREMENT AND VERIFICATION ENGINEER) PROTEIN CONCENTRATION 6 0 - 20 mg/dL 03/23/2019 3:10 PM MEASUREMENT AND VERIFICATION ENGINEER [facility] CREATININE, URINE 73.0 29.0 - 226.0 mg/dL 03/23/2019 3:10 PM MEASUREMENT AND VERIFICATION ENGINEER [facility] Comment:Reference Range vari es with fluid intake and diet. PROTEIN/CREAT RATIO, URINE 0.08 0.00 - 0.19 mg/mg Creatinine 03/23/2019 3:10 PM MEASUREMENT AND VERIFICATION ENGINEER [facility] UPE INTERP See Interpretation Below 03/23/2019 3:10 PM [facility] Urine URINE SPECIMEN OBTAINED BY CLEAN CATCH PROCEDURE / Unknown Collection / Unknown 03/20/2019 9:41 PM MEASUREMENT AND VERIFICATION ENGINEER 03/20/2019 10:33 PM MEASUREMENT AND VERIFICATION ENGINEER Narrative [facility] - 03/23/2019 3:10 PM MEASUREMENT AND VERIFICATION ENGINEER Predominantly albumin demonstrated in random urine specimen. No monoclonal bands present. Urine light chains may not be detected in random urine samples. Interpreted by: Xavier Salgado MD Elvira Sanford INSTRUCTOR PRIVATE URINE ORDERABLES Final R esult [facility] CLIA# [id number] [address] [place] [address] * CALCITRIOL (03/20/2019 9:41 PM MEASUREMENT AND VERIFICATION ENGINEER) CALCITRIOL 51 18 - 78 pg/mL 03/24/2019 1:55 PM MEASUREMENT AND VERIFICATION ENGINEER [facility] Comment: ADDITIONAL INFORMATION This test was developed and its performance characteristics determined by [facility] in a manner consistent with CLIA requirements. This test has not been cleared or approved by the U.S. Food and Drug Administration. Test Performed by: [facility] [address] [place] [address] Instrument Technician Apprentice: Wilton Saleh M.D. Ph.D.; CLIA# [id number] Blood Collection / Unknown 03/20/2019 9:41 PM MEASUREMENT AND VERIFICATION ENGINEER 03/20/2019 10:49 PM MEASUREMENT AND VERIFICATION ENGINEER Elvira Sanford [facility] CHEMISTRY ORDERABLES Fin al Result [facility] - [facility] * PROTEIN ELECTROPHORESIS W/REFLEX,SERUM (03/20/2019 9:41 PM MEASUREMENT AND VERIFICATION ENGINEER) TOTAL PROTEIN 6.9 6.4 - 8.3 g/dL 03/23/2019 3:10 PM MEASUREMENT AND VERIFICATION ENGINEER [facility] Joust [facility] ALBUMIN SPE 4.35 3.50 - 5.30 g/dL 03/23/2019 3:10 PM [facility] ALPHA 1 GLOBULIN SPE 0.17 0.11 - 0.31 g/dL 03/23/2019 3:10 PM [facility] ALPHA 2 GLOBULIN SPE 0.73 0.58 - 1.16 g/dL 03/23/2019 3:10 PM MEASUREMENT AND VERIFICATION ENGINEER [facility] BETA GLOBULIN 0.73 0.59 - 0.88 g/dL 03/23/2019 3:10 PM [facility] GAMMA GLOBULIN 0.93 0.50 - 1.35 g/dL 03/23/2019 3:10 PM MEASUREMENT AND VERIFICATION ENGINEER [facility] SPE INTERP See Interpretation Below 03/23/2019 3:10 PM MEASUREMENT AND VERIFICATION ENGINEER [facility] Blood Collection / Unknown 03/20/2019 9:41 PM MEASUREMENT AND VERIFICATION ENGINEER 03/20/2019 10:49 PM MEASUREMENT AND VERIFICATION ENGINEER Narrative [facility] Joust [facility] - 03/23/2019 3:10 PM MEASUREMENT AND VERIFICATION ENGINEER Essentially normal electrophoretic pattern. Interpreted by: Xavier Salgado MD Elvira Sanford [facility] CHEMISTRY ORDERABLES Fin al Result [facility] CLIA# [id number] [address] [place] [address] * TSH (03/20/2019 9:41 PM MEASUREMENT AND VERIFICATION ENGINEER) TSH 1.26 0.27 - 4.20 uIU/mL 03/21/2019 12:29 AM [facility] Blood Collection / Unknown 03/20/2019 9:41 PM MEASUREMENT AND VERIFICATION ENGINEER 03/20/2019 10:49 PM MEASUREMENT AND VERIFICATION ENGINEER us Elvira Sanford INSTRUCTOR PRIVATE CHEMISTRY ORDERABLES Fin al Result [facility] CLIA # [id number] [address] [place] [address] * (ABNORMAL) BASIC METABOLIC PANEL (03/20/2019 9:41 PM MEASUREMENT AND VERIFICATION ENGINEER) SODIUM 142 136 - 145 mmol/L 03/21/2019 12:29 AM [facility] POTASSIUM 3.9 3.5 - 5.1 mmol/L 03/21/2019 12:29 AM [facility] CHLORIDE 105 98 - 107 mmol/L 03/21/2019 12:29 AM [facility] CO2 26 22 - 29 mmol/L 03/21/2019 12:29 AM [facility] CALCIUM 10.5(H) 8.6 - 10.0 mg/dL 03/21/2019 12:29 AM [facility] BUN 16 6 - 20 mg/dL 03/21/2019 12:29 AM [facility] CREATININE 0.69 0.51 - 0.95 mg/dL 03/21/2019 12:29 AM [facility] GLUCOSE 106(H) 74 - 99 mg/dL 03/21/2019 12:29 AM [facility] GFR >60 >=60 mL/min/1.7 3 sq meter 03/21/2019 12:29 AM [facility] Comment: eGFR has not been validated for [...] GFR, >60 >=60 mL/min/1.7 3 sq meter 03/21/2019 12:29 AM MEASUREMENT AND VERIFICATION ENGINEER [facility] ANION GAP 11(L) 12 - 20 mmol/L 03/21/2019 12:29 AM MEASUREMENT AND VERIFICATION ENGINEER [facility] Blood Collection / Unknown 03/20/2019 9:41 PM MEASUREMENT AND VERIFICATION ENGINEER 03/20/2019 10:49 PM MEASUREMENT AND VERIFICATION ENGINEER Elvira Sanford INSTRUCTOR PRIVATE CHEMISTRY ORDERABLES Fin al Result [facility] CLIA # [id number] [address] [address] documented in this encounter Visit Diagnoses Not on filedocumented in this encounter Additional Health Concerns Infection Onset Date Last Indicated Resolved Time R/O COVID-19 03/04/2020 03/05/2020 03/06/2020 3:31 AM MEASUREMENT AND VERIFICATION ENGINEER documented as of this encounter Care Teams Armature Winder Helper Repair Relationship Specialty Start Date End Date Elizabeth Orozco MD [address] [address] PCP - General Family Practice 10/26/19 documented as of this encounter
--- OUTSIDE RECORDS SUMMARY | 2024-11-17 16:28 | XMS_ITS | Encounter Summary ---
Author Organization [facility] Address [address] [place] [address] Care Team Providers Care Intelligence Senior Sergeant Name Role Phone Elizabeth Orozco MD Primary Care Provider [phone]- [phone] Reason for Referral * MRI (Routine) - Closed Specialty Diagnoses / Procedures Referred By Lexus yeh Referred To Contact Radiology Diagnoses Neuritis Procedures MRI CERVICAL WO CONTRAST MRI CERVICAL W WO CONTRAST John Dong PA [address] [place] [address] Phone: tel: fax: [facility] [address] [facility] [address] [place] [address] Phone: tel: fax: Referral ID Status Reason Start Date Expiration Date Visits Re quested Visits Authorized [id number] Closed 06/09/2019 07/09/2020 [address] MEDIA BUYER Encounter Details Date Type Department Care Team (Late st Contact Info) Description 06/09/2019 Ancillary Orders [facility] Centralized Scheduling [address] [place] [phone] John Dnog PA [address] [place] [address] Neuritis Social History Tobacco Use Types Packs/Day Years Used Date Smoking Tobacco: Former Cigarettes 1 30 0 05/17/1985 - 2015 Smokeless Tobacco: Never Alcohol Use Standard Drinks/Week Comments Not Currently 0 (1 standard drink = 0.6 oz pure alcohol) Have not drank alcohol since 2012. Prior occasional drinker Comments No Sex and Gender Information Value Date Recorded Sex Assigned at Not on file Legal Sex Female 2:07 PM CDT Gender Identity Not on file Sexual Orientation Not on file documented as of this encounter Plan of Treatment Not on file documented as of this encounter Results * MRI CERVICAL WO CONTRAST (06/21/2019 4:30 PM CDT) Anatomical Region Laterality Modality Spine Magnetic Resonan ce 06/21/2019 4:51 PM CDT Impressions 06/23/2019 12:44 PM CDT IMPRESSION: Please see below. Exam: MRI CERVICAL WO CONTRAST Date/Time of Exam: 06/21/2019 4:30 PM Reason For Exam: See Diagnosis. Diagnosis: Neuritis. Technique: Multiplanar imaging of the cervical spine was performed without IV gadolinium. Comparison: None Findings: Normal height and alignment of the cervical vertebrae. No significant abnormal marrow or soft tissue signal change. Normal relationships at the foramen magnum in appearance of the cord. C2-3: Unremarkable C3-4: Mild disc bulge. Left greater than right facet degenerative changes and mild to moderate left foraminal narrowing. The right foramen is patent. C4-5: Left facet degenerative changes and mild to moderate left foraminal narrowing. C5-6: Very mild left foraminal narrowing. C6-7: Mild disc bulge and mild to moderate left foraminal narrowing. C7-T1: Unremarkable. IMPRESSION: 1. Multilevel degenerative changes and left C4-5, C5-6, and C6-7 foraminal narrowing. [id number] Narrative Procedure Note Edgar Dewey MD - 06/23/2019 IMPRESSION: Please see below. Exam: MRI CERVICAL WO CONTRAST Date/Time of Exam: 06/21/2019 4:30 PM Reason For Exam: See Diagnosis. Diagnosis: Neuritis. Technique: Multiplanar imaging of the cervical spine was performed without IV gadolinium. Comparison: None Findings: Normal height and alignment of the cervical vertebrae. No significant abnormal marrow or soft tissue signal change. Normal relationships at the foramen magnum in appearance of the cord. C2-3: Unremarkable C3-4: Mild disc bulge. Left greater than right facet degenerative changes and mild to moderate left foraminal narrowing. The right foramen is patent. C4-5: Left facet degenerative changes and mild to moderate left foraminal narrowing. C5-6: Very mild left foraminal narrowing. C6-7: Mild disc bulge and mild to moderate left foraminal narrowing. C7-T1: Unremarkable. IMPRESSION: 1. Multilevel degenerative changes and left C4-5, C5-6, and C6-7 foraminal narrowing. [id number] John HOLBROOK MR ORDERABLES Final Result documented in this encounter Visit Diagnoses Diagnosis Neuritis Neuralgia, neuritis, and radiculitis, unspecified Neuritis Neuralgia, neuritis, and radiculitis, unspecified documented in this encounter Additional Health Concerns Infection Onset Date Last Indicated Resolved Time R/O COVID-19 03/04/2020 03/05/2020 03/06/2020 3:31 AM ONLINE MEDIA BUYER documented as of this encounter Care Teams Intelligence Senior Sergeant Relationship Specialty Start Date End Date Elizabeth Orozco MD [address] [address] PCP - General Family Practice 10/26/19 documented as of this encounter
--- OUTSIDE RECORDS SUMMARY | 2024-11-17 16:29 | XMS_ITS | Encounter Summary ---
Author Organization [facility] Address [address] [place] [address] Care Team Providers Care Boat Finisher Name Role Phone Elizabeth Orozco MD Primary Care Provider [phone]- [phone] Reason for Referral * Radiology Services (Routine) - Closed Specialty Diagnoses / Procedures Referred By Lexus yeh Referred To Contact Diagnoses Visit for screening mammogram Procedures MAMMO SCRN UNI LEFT W OR WO CAD Zeus Gaitan PA Referral ID Status Reason Start Date Expiration Date Visits Re quested Visits Authorized [id number] Closed 11/02/2019 12/02/2020 1 1 Encounter Details Date Type Department Care Team (Latest Contact Info) Description 11/02/2019 Ancillary Orders [facility] Mammography [place] [address] [place] [address] Zeus Gaitan PA NO ADDRESS ON FILE Visit for screening mammogram Social History Tobacco Use Types Packs/Day Years [...] on file Sexual Orientation Not on file COVID-19 Exposure Response Date Recorded In the last month, have you been in contact with someone who was confirmed or suspected to have Coronavirus / COVID-19? No / Unsure 11/03/2019 11:45 AM CDT documented as of this encounter Plan of Treatment Not on file documented as of this encounter Results * MAMMO SCRN UNI LEFT W OR WO CAD (11/09/2019 2:41 PM CDT) Anatomical Region Laterality Modality Breast Left Mammography 11/09/2019 2:50 PM CDT Impressions 11/13/2019 10:21 AM CDT : Technical repeat views show no suspicious findings and no change. I would recommend follow-up screening mammogram in one year. [id number] Narrative 11/13/2019 10:21 AM CDT LEFT TECHNICAL REPEAT VIEWS 11/09/2019 2. 2-D left MLO views were obtained. No discrete or suspicious findings are seen. No change is seen compared with prior exams of 01/24/2018, 01/20/2017, and 02/28/2015. Breast Density: The breasts are heterogeneously dense which may obscure small masses. This mammogram was also analyzed by the Computer Aided Detection System (CAD), [employer] ImageChecker, Version 8.3. Zeus HOLBROOK MAMMO ORDERABLES Final Result documented in this encounter Visit Diagnoses Diagnosis Visit for screening mammogram Other screening mammogram Visit for screening mammogram Other screening mammogram documented in this encounter Additional Health Concerns Infection Onset Date Last Indicated Resolved Time R/O COVID-19 03/04/2020 03/05/2020 03/06/2020 3:31 AM WATER HAULER documented as of this encounter Care Teams Boat Finisher Relationship Specialty Start Date End Date Elizabeth Orozco MD [address] [address] PCP - General Family Practice 10/26/19 documented as of this encounter
--- OUTSIDE RECORDS SUMMARY | 2024-11-17 16:29 | XMS_ITS | Encounter Summary ---
Author Organization [facility] Address [address] [place] [address] Care Team Providers Care Plug Saw Operator Name Role Phone Elizabeth Orozco MD Primary Care Provider [phone]- [phone] Encounter Details Date Type Department Care Team (Late st Contact Info) Description 11/03/2019 Ancillary Orders [facility] Imaging External Read [address] [place] [address] Zeus Gaitan PA NO ADDRESS ON FILE Social History Tobacco [...] on file documented as of this encounter Visit Diagnoses Not on filedocumented in this encounter Additional Health Concerns Infection Onset Date Last Indicated Resolved Time R/O COVID-19 03/04/2020 03/05/2020 03/06/2020 3:31 AM ACCOUNTING ANALYST documented as of this encounter Care Teams Plug Saw Operator Relationship Specialty Start Date End Date Elizabeth Orozco MD [address] [place] [phone] PCP - General Family Practice 10/26/19 documented as of this encounter
--- OUTSIDE RECORDS SUMMARY | 2024-11-17 16:29 | XMS_ITS | Encounter Summary ---
Author Organization [facility] Address [address] [place] [address] Care Team Providers Care Piler Name Role Phone Elizabeth Orozco MD Primary Care Provider [phone]- [phone] Encounter Details Date Type Department Care Team (Latest Contact Info) Description 11/03/2019 Ancillary Orders [facility] [address] [address] Zeus Gaitan PA NO ADDRESS ON FILE Inconclusive mammogram Social History Tobacco Use Types Packs/Day [...] documented as of this encounter Visit Diagnoses Diagnosis Inconclusive mammogram documented in this encounter Additional Health Concerns Infection Onset Date Last Indicated Resolved Time R/O COVID-19 03/04/2020 03/05/2020 03/06/2020 3:31 AM DAIRY MANAGEMENT SPECIALIST documented as of this encounter Care Teams Piler Relationship Specialty Start Date End Date Elizabeth Orozco MD [address] [facility] [address] [place] [address] PCP - General Family Practice 10/26/19 documented as of this encounter
--- OUTSIDE RECORDS SUMMARY | 2024-11-17 16:29 | XMS_ITS | Clinical Summary ---
Author Organization [facility] Address [address] [address] Phone Care Team Providers Care Rubber Cutter Name Role Phone Elizabeth Orozco MD Primary Care Provider Allergies Active Allergy Reactions Criticality Noted Date Comments Bacitracin-Polymyxin B Rash Low 12/14/2018 Ibuprofen Nausea and Vomiting Low 10/25/2019 Rhlmdrhl-Dnaavecinl-Cecvf yxin Rash Low 11/23/2019 Ajzhnxii-Xtgwtrxkigg-Dlll myxnb Rash Low 02/22/2019 Neosporin (Neomycin-Polymyx) Rash Low 04/12/2014 Phenazopyridine Anaphylaxis High 12/14/2018 Unclassified Drug Rash Medium 03/06/2015 Polysporin ointment Medications prazosin (MINIPRESS) 1 mg capsule Take 5 mg by mouth daily at bedtime. 0 Active sertraline (ZOLOFT) 100 mg tablet Take 200 mg by mouth daily. 0 Active Miscellaneous Medical SupplyIndication s:Sciatica, unspecified laterality Shoe insert 1 Each 1 1 Active azelastine (ASTELIN) 137 mcg/actuation nasal spray Administer 2 Sprays in each nostril 2 times daily. 30 mL 11 0 Active meloxicam (MOBIC) 7.5 mg tablet Take 1 Tablet (7.5 mg) by mouth daily. 90 Tablet 1 1 Active flaxseed oil-omega 3,6,9 1,300 mg-845 mg -117 mg-117 mg Capsule flaxseed oil 1,300 mg-omega 3,6,9 845 mg-117 mg-117 mg capsule Take by oral route. Active magnesium oxide 500 mg Tablet magnesium 500 mg tablet Take by oral route. Active cetirizine (ZyrTEC) 10 mg tablet every 24 hours. Acti ve cyclobenzaprine (FLEXERIL) 10 mg tablet Take 10 mg by mouth every 8 hours as needed. Active fluticasone propionate (FLONASE) 50 mcg/spray [place], Suspension nasal inhaler Administer 2 Sprays in each nostril daily. Active mupirocin (BACTROBAN) 2 % Ointment Apply to affected area daily. Active traZODone (DESYREL) 100 mg tablet Take 100 mg by mouth daily at bedtime. Active omega-3 fatty acids (EPA ORAL) Take by mouth. Active acetylcarnitine HCl (ACETYL L-CARNITINE ORAL) Take by mouth daily. Active creatine monohydrate (CREATINE ORAL) Take by mouth daily. 2000 mg daily Active calcium carbonate-vitami n D3 (Caltrate with Vitamin D3) 600 mg-20 mcg (800 unit) Tablet Take 1 Tablet by mouth daily. 2 Active fluticasone propionate (FLONASE) 50 mcg/spray [place], Suspension nasal inhaler Administer 2 Sprays in each nostril daily. 9 Active mupirocin (BACTROBAN) 2 % Ointment Apply to affected area daily. Active cyclobenzaprine (FLEXERIL) 10 mg tablet Take 10 mg by mouth 3 times daily as needed for Spasm. 9 Active cetirizine (ZyrTEC) 10 mg tablet Take 10 mg by mouth daily. Active FLAXSEED OIL ORAL Take 1 Capsule by mouth daily. 9 Active traZODone (DESYREL) 100 mg tablet Take 100 mg by mouth daily at bedtime. 9 Active Active Problems Problem Noted Date Diagnosed Date Allergic rhinitis 05/12/2021 Insomnia 05/12/2021 Major depressive disorder with current active ep isode 05/12/2021 Cervical spondylosis without myelopathy 08/14/19 21 Pain of cervical facet joint 08/13/2020 Neuroforaminal stenosis of cervical spine 2020 DDD (degenerative disc disease), cervical 2020 Numbness 08/13/2020 Overview (09/25/2020): bilat hands, not tingling at present H/O carpal tunnel repair 08/13/2020 S/P foot surgery, left 03/22/2019 Immunizations Immunization Administration Dates Next Due (SPIKEVAX) (12 YRS UP PRIMAR Y SERIES) COVID-19 VACCINE - MRNA-1273(PF) 100 MCG/0.5 ML IM SUSP 07/24/2020,06/26/2020 INFLUENZA VACCINE QUADRIVALENT 3 YR UP PF IM INFLUENZA VACCINE QUADRIVALENT 6 MOS UP PF IM 01/20/2022 Family History Medical History Relation Name Comments Cancer Brother John Lynn Kidney Cancer/Clear cell renal cell - age 49 Kidney Cancer Brother John Lynn Kidney Cancer/Clear cell renal cell Migraines Daughter 1 Danyel Hurley Anesthesia Problems Father John Lynn Became combative COPD Father John Lynn Cancer Father John Lynn Throat and Sinus squamous - age 68 Throat Cancer Father John Lynn THROAT & SINUS-SQUAMOUS CELL Diabetes Maternal Aunt Aisha Timmons Type II - Obes ity Cancer Maternal Grandmother Anahi Timmons [place] n cancer - age 66 Colon Cancer Maternal Grandmother Anahi Timmons COPD Mother Roslyn BorjasShane Heart Disease Mother Roslyn Lynn Heart attac k 2010 - stent placement High Cholesterol Mother Roslyn BorjasShane Hypertension Mother Roslyn BorjasShane Stroke Paternal Grandmother Tran Shane Se veral strokes Cancer Sister Prakash Borjaseitzer Skin - Sq uamous Cell Carcinoma - Living Skin Cancer Sister Prakash Borjaseitzer Skin - Sq uamous Cell Carcinoma - Living Breast Cancer Neg Hx Ovarian Cancer Neg Hx Relation Name Status Comments Brother John Lynn (Age 49) Daughter 1 Danyel Hurley Daughter 2 Mila Hurley Alive Father John Lynn (Age 68) Maternal Aunt Aisah Timmons Maternal Grandmother Anahi Timmons (Age 66) Mother Roslyn BorjasShane Paternal Grandmother Tran Shane Sister Prakash Borjaseitzer Alive Social History Tobacco Use Types Packs/Day Years Used Date Smoking Tobacco: Former Cigarettes Q uit: 05/17/2015 Smokeless Tobacco: Never Alcohol Use Standard Drinks/Week Comments Not Currently 0 (1 standard drink = 0.6 oz pur e alcohol) Comments No Sex and Gender Information Value Date Recorded Sex Assigned at Not on file Legal Sex Female 8:25 PM SOFTWARE ENGINEER DEVELOPER Gender Identity Not on file Sexual Orientation Not on file Last Filed Vital Signs Vital Sign Reading Time Taken Comments Blood Pressure 102/68 05/12/2021 3:05 PM SOFTWARE ENGINEER DEVELOPER Pulse 84 05/12/2021 3:05 PM SOFTWARE ENGINEER DEVELOPER Temperature 36.7 C (98 F) 05/12/2021 3:05 PM SOFTWARE ENGINEER DEVELOPER Respiratory Rate 18 01/20/2021 3:36 PM CDT Oxygen Saturation 95% 05/12/2021 3:05 PM SOFTWARE ENGINEER DEVELOPER Inhaled Oxygen Concentration - - Weight 68.9 kg (152 lb) 05/12/2021 3:05 PM SOFTWARE ENGINEER DEVELOPER Height 157.5 cm (5' 2 ) 05/12/2021 3:05 PM SOFTWARE ENGINEER DEVELOPER Body Mass Index 27.8 05/12/2021 3:05 PM SOFTWARE ENGINEER DEVELOPER Plan of Treatment Health Maintenance Due Date Last Done Comments COLORECTAL SCREENING 2006 FIT-DNA Q 3 years 2006 Flex Sig/CT Colonography Q 5 years 2006 ZOSTER VACCINE (1 of 2) 12/31/2011 BREAST CANCER SCREENING 02/21/2022 02/22/20, 11/09/2019, 10/19/2019, Additional history exists Colorectal Cancer Screening 05/28/2022 FIT/FOBT Q 1 year 05/28/2022 05/28/2021 PAP SMEAR 11/12/2022 11/13/2019 COVID-19 Vaccine (3 - 2023-2 5 season) 2023 07/24/2020, 06/26/2020 INFLUENZA VACCINE (#1) 2024 , 03/04/2020, 03/04/2020, Additional history exists CERVICAL CANCER SCREENING 11/12/2024 HPV/Cotest (21-29) 11/12/2024 11/13/2019 HPV/Cotest (30-65) 11/12/2024 11/13/2019 DTAP/TDAP/TD VACCINES (2 - Tdap) 03/27/2025 03/27/20 15 RSV VACCINE (60+ or ) (1 - 1-dose 75+ series) 2036 Medical Devices Implanted Type Area Concrete Mixer Loader Truck Mounted Device Identifier Shelf Expiration Date Model / Serial / Lot Plate Calc Fx Perc Lng Lt Ar-8954yl-L - [id number] Implanted:Qty: 1 on 12/27/2018 by Klaus Powell MD Plate Left: Foot [employer] AR-[id number]-L / / Screw Lp Lck 3.5x24mm Ar-8935l-24 - [id number] Implanted:Qty: 1 on 12/27/2018 by Klaus Powell MD Screw Left: Foot [employer] AR-8935L-24 / / Screw Lp Lck 3.5x26mm Ar-8935l-26 - [id number] Implanted:Qty: 1 on 12/27/2018 by Klaus Powell MD Screw Left: Foot [employer] AR-8935L-26 / / Screw Lp Lck 3.5x28mm Ar-8935l-28 - [id number] Implanted:Qty: 1 on 12/27/2018 by Klaus Powell MD Screw Left: Foot [employer] AR-8935L-28 / / Screw Lp Lck 3.5x30mm Ar-8935l-30 - [id number] Implanted:Qty: 1 on 12/27/2018 by Klaus Powell MD Screw Left: Foot [employer] AR-8935L-30 / / Screw Lp Lck Ss 3.5x28mm Ar-[id number]-28 - [id number] Implanted:Qty: 1 on 12/27/2018 by Klaus Powell MD Screw Left: Foot [employer] AR-8835L-28 / / Screw Lp Ti 3.5x30mm Ar-8935-30 - [id number] Implanted:Qty: 1 on 12/27/2018 by Klaus Powell MD Screw Left: Foot [employer] AR-8935-30 / / Screw Lp Ti 3.5x36mm Ar-8935-36 - [id number] Implanted:Qty: 1 on 12/27/2018 by Klaus Powell MD Screw Left: Foot [employer] AR-8935-36 / / Explanted Type Area Concrete Mixer Loader Truck Mounted Device Identifier Shelf Expiration Date Model / Serial / Lot Wire K Trocar Dbl .[id number] - [id number] Implanted:12/27 by Klaus Powell MD (Quantity not on file) Explanted:12/27 (Quantity not on file) Wire Left: Foot [facility]-29- 62 / / Wire K Trocar Dbl .[id number] - [id number] Implanted:12/27 by Klaus Powell MD (Quantity not on file) Explanted:Qty: 1 on 12/27/2018 Wire Left: Foot [facility] 02/09/2019 [facility]- 29-28 / / [id number] Procedures Procedure Name Priority Date/Time Associated Diagnosis Comments POC OCCULT BLOOD UP TO 3 CARDS Routine 05/28/2021 1:27 PM SOFTWARE ENGINEER DEVELOPER Colon cancer screening MAMMO SCREEN BILAT W OR WO CAD Routine 02/21/2021 Breast cancer screening by mammogram CERV/VAG CYTO SCREEN PAP RLFX HPV Routine 11/13/2019 3:29 PM CDT from Last 3 Months or Most Recently Relevant to Health Maintenance Results * POC OCCULT BLOOD UP TO 3 CARDS (05/28/2021 1:27 PM SOFTWARE ENGINEER DEVELOPER) OCCULT BLOOD 1 CARD POC Negative Negative [facility] OCCULT BLOOD 2 CARD POC Negative Negative [facility] OCCULT BLOOD 3 CARD POC Negative Negative [facility] INTERNAL KIT QC POC Pass Pass [facility] [place] CARD LOT NUMBER POC [id number] [facility] [place] CARD EXPIRATION DATE POC 06/09/23 [facility] [place] DEVELOPER LOT NUMBER POC [id number] [facility] [place] DEVELOPER EXPIRATION DATE POC 11/08/22 [facility] Stool STOOL SPECIMEN / Unknown 05/28/2021 1:27 PM SOFTWARE ENGINEER DEVELOPER Elizabeth Orozco MD POINT OF CARE TESTING Final Result [facility] CLIA# [id number] [address] [place] [id number] * MAMMO SCREEN BILAT W OR WO CAD (02/21/2021) Anatomical Region Laterality Modality Breast Bilateral Mammography Zeus [facility] MAMMO ORDERABLES Final Result * CERV/VAG CYTO SCREEN PAP RLFX HPV (11/13/2019 3:29 PM CDT) CLINICAL INFORMATION Information not provided SCREENING 11/16/2019 2:46 PM CDT [facility] LAST MENSTRUAL PERIOD [id number]/16/2019 2:46 PM CDT [facility] PREV PAP: INFORMATION NOT PROVIDED 11/16/2019 2:46 PM CDT [facility] PREV BX: INFORMATION NOT PROVIDED 11/16/2019 2:46 PM CDT [facility] SOURCE Endocervix 11/16/2019 2:46 PM CDT [facility] ADEQUACY: SATISFACTORY FOR EVALUATION 11/16/2019 2:46 PM CDT [facility] PAP INTERP SEE COMMENT 11/16/2019 2:46 PM CDT [facility] Comment: Negative for intraepithelial lesion or malignancy. Atrophic pattern; predominantly parabasal cells COMMENT SEE COMMENT 11/16/2019 2:46 PM CDT [facility] Comment: This Pap test has been evaluated with computer assisted technology. Tip of collection device in vial INVENTORY ASSOCIATE AND DRIVER: SEE COMMENT 2019 2:46 PM CDT [facility] Comment: DDS, CT(ASCP) CT screening location: [place] [address] [address] [address] EXPLANATORY NOTE SEE COMMENT 020 2:46 PM CDT [facility] Comment: EXPLANATORY NOTE: The Pap is a screening test for cervical cancer. It is not a diagnostic test and is subject to false negative and false positive results. It is most reliable when a satisfactory sample, regularly obtained, is submitted with relevant clinical findings and history, and when the Pap result is evaluated along with historic and current clinical information. Genital SWAB OF ENDOCERVIX / Unknown Collection / Unknown 11/13/2019 3:29 PM CDT 11/15/2019 12:39 PM CDT Narrative [facility] - 11/16/2019 2:46 PM CDT Performing Organization Information: Site ID: SL Name: [facility] Address: [address] [place] [address] Director: Mitchell Mcclain us Asha Nuñez RETAIL MANAGEMENT TRAINEE PATHOLOGY/CYTOLOGY ORDERABLES Fi nal Result [facility] [phone] [facility] from Last 3 Months or Most Recently Relevant to Health Maintenance Insurance BC[employer] TRADITIONAL * Guarantor: ANAHI HURLEY Account Type Relation to Patient Date of Phone Billing Address Personal/Family [address] [place] [address] RX BUENO PLANS (INTERNAL) [facility] Care Teams Rubber Cutter Relationship Specialty Start Date End Date Elizabeth Orozco MD [address] [address] PCP - General 07/09/20
--- OUTSIDE RECORDS SUMMARY | 2024-11-17 16:29 | XMS_ITS | Encounter Summary ---
Author Organization [facility] Address [address] [place] [address] Care Team Providers Care Fitness Center Attendant Name Role Phone Elizabeth Orozco MD Primary Care Provider [phone] Encounter Details Date Type Department Care Team (Late st Contact Info) Description 11/03/2019 Ancillary Orders [facility] [place] [address] [place] [address] Zeus Gaitan PA NO ADDRESS ON FILE [...] R/O COVID-19 03/04/2020 03/05/2020 03/06/2020 3:31 AM RECRUITING OPERATIONS CONSULTANT documented as of this encounter Care Teams Fitness Center Attendant Relationship Specialty Start Date End Date Elizabeth Orozco MD [address] [place] [phone] PCP - General Family Practice 10/26/19 documented as of this encounter
--- OUTSIDE RECORDS SUMMARY | 2024-11-17 16:29 | XMS_ITS | Clinical Summary ---
Author Organization [facility] Address [address] [address] Phone Care Team Providers Care Cable Lacer Name Role Phone Elizabeth Orozco MD Primary Care Provider Allergies Active Allergy Reactions Criticality Noted Date Comments Bacitracin-Polymyxin B Rash Low 12/14/2018 Ibuprofen Nausea and Vomiting Low 10/25/2019 Xlkwgykq-Ggedczswfk-Hltpeqwpa Rash Low 2019 Qrtntqzv-Tkjnkqslovx-Ncuvmexiz Rash Low 02/22 Neosporin (Neomycin-Polymyx) Rash Low 015 Phenazopyridine Anaphylaxis High 12/14/2018 Medications traZODone (DESYREL) 100 mg tablet Take 100 mg by mouth daily at bedtime. Active mupirocin (BACTROBAN) 2 % Ointment Apply to affected area daily. Active cyclobenzaprine (FLEXERIL) 10 mg tablet Take 10 mg by mouth 3 times daily as needed for Spasm. Active cetirizine (ZyrTEC) 10 mg tablet Take 10 mg by mouth daily. Active fluticasone propionate (FLONASE) 50 mcg/spray [place], Suspension nasal inhaler Administer 2 Sprays in each nostril daily. Active FLAXSEED OIL ORAL Take 1 Capsule by mouth daily. Active prazosin (MINIPRESS) 1 mg capsule Take 3 mg by mouth daily at bedtime. Active Tretinoin-Emol 9-Skin Cleansr1 (TRETIN-X Cream Kit) 0.05 % Combo Pack TRETIN-X Cream 0.05 % topical kit APPLY TO THE AFFECTED AREA(S) BY TOPICAL ROUTE ONCE DAILY Active sertraline (ZOLOFT) 100 mg tablet Take 200 mg by mouth daily. 0 Active azelastine (ASTELIN) 137 mcg/actuation nasal spray Administer 2 Sprays in each nostril 2 times daily. 30 mL 11 0 Active albuterol HFA 90 mcg inhaler Take 2 Puffs by inhalation every 6 hours as needed for Shortness of Breath. 8.5 Gram 5 0 Active ARIPiprazole (ABILIFY) 5 mg tablet Take 15 mg by mouth daily. Active Miscellaneous Medical SupplyIndication s:Sciatica, unspecified laterality Shoe insert 1 Each 1 1 Active meloxicam (Mobic) 7.5 mg tablet Take 1 Tablet (7.5 mg) by mouth daily. 90 Tablet 1 1 Active cholecalciferol 1,250 mcg (50,000 unit) Capsule Take 1 Capsule (50,000 Units) by mouth every 7 days. 12 Capsule 1 Active Active Problems Problem Noted Date Diagnosed Date Cervical spondylosis without myelopathy 08/14/19 21 Pain of cervical facet joint 08/13/2020 Neuroforaminal stenosis of cervical spine 2020 DDD (degenerative disc disease), cervical 2020 Numbness 08/13/2020 Overview (08/13/2020): bilat hands, not tingling at present H/O carpal tunnel repair 08/13/2020 S/P foot surgery, left 03/22/2019 Immunizations Immunization Administration Dates Next Due (SPIKEVAX) (12 YRS UP PRIMAR Y SERIES) COVID-19 VACCINE - MRNA-1273(PF) 100 MCG/0.5 ML IM SUSP 07/24/2020,06/26/2020 INFLUENZA VACCINE QUADRIVALENT 3 YR UP PF IM 01/09/2021 Family History Medical History Relation Name Comments Cancer Brother John Borjaseitzer Kidney Cancer/Clear cell renal cell - age 49 Kidney Cancer Brother John Borjaseitzer Kidney Cancer/Clear cell renal cell Migraines Daughter 2 Danyel Hurley Anesthesia Problems Father John Borjaseitzer Became combative COPD Father John [place] Cancer Father John [place] Throat and Sinus squamous - age 68 Throat Cancer Father John Lynn THROAT & SINUS-SQUAMOUS CELL Diabetes Maternal Aunt Aisha Timmons Type II - Obes ity Cancer Maternal Grandmother Anahi Timmons [place] n cancer - age 66 Colon Cancer Maternal Grandmother Anahi Timmons COPD Mother Roslyn Lynn Heart Disease Mother Roslyn Lynn Heart attac k 2010 - stent placement High Cholesterol Mother Roslyn Lynn Hypertension Mother Roslyn Lynn Stroke Paternal Grandmother Tran Lynn Se veral strokes Cancer Sister Prakash Lynn Skin - Sq uamous Cell Carcinoma - Living Skin Cancer Sister Prakash Lynn Skin - Sq uamous Cell Carcinoma - Living Breast Cancer Neg Hx Ovarian Cancer Neg Hx Relation Name Status Comments Brother John Lynn (Age 49) Daughter 1 Mila Hurley Alive Daughter 2 Danyel Hurley Father John Lynn (Age 68) Maternal Aunt Aisha Timmons Maternal Grandmother Anahi Timmons (Age 66) Mother Roslyn Lynn Paternal Grandmother Tran Lynn Sister Prakash Lynn Alive Social History Tobacco Use Types Packs/Day [...] Sign Reading Time Taken Comments Blood Pressure 109/77 08/21/2020 9:22 AM CDT Pulse 76 08/21/2020 9:22 AM CDT Temperature 36.3 C (97.4 F) 08/21/2020 9:22 AM CDT Respiratory Rate 19 08/21/2020 9:22 AM CDT Oxygen Saturation 98% 08/21/2020 9:22 AM CDT Inhaled Oxygen Concentration - - Weight 66.4 kg (146 lb 6.4 oz) 08/21/2020 9:22 A M CDT Height 157.5 cm (5' 2 ) 08/21/2020 9:22 AM CDT Body Mass Index 26.78 08/21/2020 9:22 AM CDT Plan of Treatment Health Maintenance Due Date Last Done Comments COLORECTAL SCREENING 2006 Colorectal Cancer Screening 2006 FIT-DNA Q 3 years 2006 FIT/FOBT Q 1 year 2006 Flex Sig/CT Colonography Q 5 years 2006 ZOSTER VACCINE (1 of 2) 12/31/2011 BREAST CANCER SCREENING 02/21/2022 02/22/20 21, 11/09/2019, 10/19/2019, Additional history exists PAP SMEAR 11/12/2022 11/13/2019 COVID-19 Vaccine (3 - 2023-2 5 season) 2023 07/24/2020, 06/26/2020 Preventative Visit- Commercial 04/12/2024 11/13/2019 INFLUENZA VACCINE (#1) 2024 0, 03/04/2020, 01/10/2020, Additional history exists CERVICAL CANCER SCREENING 11/12/2024 HPV/Cotest (21-29) 11/12/2024 11/13/2019 HPV/Cotest (30-65) 11/12/2024 11/13/2019 DTAP/TDAP/TD VACCINES (2 - Tdap) 03/27/2025 03/27/20 15 RSV VACCINE (60+ or ) (1 - 1-dose 75+ series) 2036 Medical Devices Implanted Type Area Centrifugal Spinner Device Identifier Shelf Expiration Date Model / Serial / Lot Plate Calc Fx Perc Lng Lt Ar-8954yl-L - [id number] Implanted:Qty: 1 on 12/27/2018 by Klaus Powell MD at [facility] Plate Left: Foot [employer] AR-8954YL-L / / Screw Lp Lck 3.5x30mm Ar-8935l-30 - [id number] Implanted:Qty: 1 on 12/27/2018 by Klaus Powell MD at [facility] Screw Left: Foot [employer] AR-8935L-30 / / Screw Lp Ti 3.5x30mm Ar-8935-30 - [id number] Implanted:Qty: 1 on 12/27/2018 by Klaus Powell MD at [facility] Screw Left: Foot [employer] AR-8935-30 / / Screw Lp Lck 3.5x24mm Ar-8935l-24 - [id number] Implanted:Qty: 1 on 12/27/2018 by Klaus Powell MD at [facility] Screw Left: Foot [employer] AR-8935L-24 / / Screw Lp Ti 3.5x36mm Ar-8935-36 - [id number] Implanted:Qty: 1 on 12/27/2018 by Klaus Powell MD at [facility] Screw Left: Foot [employer] AR-8935-36 / / Screw Lp Lck 3.5x26mm Ar-8935l-26 - [id number] Implanted:Qty: 1 on 12/27/2018 by Klaus Powell MD at [facility] Screw Left: Foot [employer] AR-8935L-26 / / Screw Lp Lck 3.5x28mm Ar-8935l-28 - [id number] Implanted:Qty: 1 on 12/27/2018 by Klaus Powell MD at [facility] Screw Left: Foot [employer] AR-8935L-28 / / Screw Lp Lck Ss 3.5x28mm Ar-8835l-28 - [id number] Implanted:Qty: 1 on 12/27/2018 by Klaus Powell MD at [facility] Screw Left: Foot [employer] AR-8835L-28 / / Explanted Type Area Centrifugal Spinner Device Identifier Shelf Expiration Date Model / Serial / Lot Wire K Trocar Dbl .[id number] - [id number] Implanted:2018 by Klaus Powell MD (Quantity not on file) Explanted:Qty: 1 on 12/27/2018 at [facility] Wire Left: Foot [employer] 02/09/2019 [id number] / / [id number] Wire K Trocar Dbl .[id number]-[id number] - [id number] Implanted:2018 by Klaus Powell MD (Quantity not on file) Explanted:2018 at [facility] (Quantity not on file) Wire Left: Foot [facility] [id number] / / Procedures Procedure Name Priority Date/Time Associated Diagnosis Comments CERV/VAG CYTO SCREEN PAP RLFX HPV Routine 11/13/2019 3:29 PM CDT Well woman exam with routine gynecological exam MAMMO SCRN UNI LEFT W OR WO CAD Routine 11/09/2019 2:41 PM CDT Visit for screening mammogram from Last 3 Months or Most Recently Relevant to Health Maintenance Results * CERV/VAG CYTO SCREEN PAP RLFX HPV [...] technology. Tip of collection device in vial RECORD LABEL INTERN: SEE COMMENT 2019 2:46 PM CDT [facility] Comment: DDS, CT(ASCP) CT screening location: [place] [address] [place] [address] EXPLANATORY NOTE SEE COMMENT 020 2:46 PM [...] Collection / Unknown 11/13/2019 3:29 PM CDT 11/14/2019 12:03 PM CDT Narrative [facility] - 11/16/2019 2:46 PM CDT Performing Organization Information: Site ID: SL Name: [facility] Address: [address] [place] [address] Director: Mitchell Mcclain Asha Nuñez TRAVERSE ROD ASSEMBLER PATHOLOGY/CYTOLOGY ORDERABLES Fi nal Result [facility] [phone] * MAMMO SCRN UNI LEFT W OR WO CAD (11/09/2019 2:41 PM CDT) Anatomical Region Laterality Modality Breast Left Mammography 11/09/2019 2:50 PM CDT Impressions 11/13/2019 10:21 AM CDT : Technical repeat views show no suspicious findings and no change. I would recommend follow-up screening mammogram in one year. [id number] Narrative 11/13/2019 10:21 AM CDT LEFT TECHNICAL REPEAT VIEWS 11/09/2019 2. 2-D left MLO views were obtained. No discrete or suspicious findings are seen. No change is seen compared with prior exams of 01/24/2018, 01/20/2017, and 02/28/2015. Breast Density: The breasts are heterogeneously dense which may obscure small masses. This mammogram was also analyzed by the Computer Aided Detection System (CAD), [employer] ImageChecker, Version 8.3. us Zeus [facility] MAMMO ORDERABLES Final Result from Last 3 Months or Most Recently Relevant to Health Maintenance Insurance RX BUENO PLANS (INTERNAL) [facility] Plans Advance Directives For more information, please contact: [phone] * Full Code (Latest Code Status on File) Date Activated Date Inactivated Comments 12/27/2018 11:42 AM 12/27/2018 7:38 PM * Full Code Date Activated Date Inactivated Comments 12/27/2018 10:17 AM 12/27/2018 11:42 AM Care Teams Cable Lacer Relationship Specialty Start Date End Date Elizabeth Orozco MD [address] [id number] PCP - General Family Practice 10/26/19
--- OUTSIDE RECORDS SUMMARY | 2024-11-17 16:29 | XMS_ITS | Encounter Summary ---
Author Organization [facility] Address [address] [place] [address] Care Team Providers Care Chemistry Quality Control Technician Name Role Phone Elizabeth Orozco MD Primary Care Provider [phone] Encounter Details Date Type Department Care Team (Late st Contact Info) Description 11/02/2019 Ancillary Orders [facility] [address] [address] Zeus Gaitan PA NO ADDRESS ON FILE Breast cancer screening by mammogram Social History Tobacco Use Types Packs/Day [...] as of this encounter Results * MAMMO PRIOR STUDY (01/24/2018 1:40 PM CDT) Narrative 11/02/2019 1:38 PM CDT This exam was auto finalized to allow images to be scanned to PACS. [facility] ORDERABLES Final Result * MAMMO PRIOR STUDY (01/20/2017 1:40 PM CDT) Narrative 11/02/2019 1:38 PM CDT This exam was auto finalized to allow images to be scanned to PACS. us [facility] ORDERABLES Final Result * MAMMO PRIOR STUDY (02/28/2015 1:40 PM VIDEOTAPE SALES REPRESENTATIVE) Narrative 11/02/2019 1:38 PM CDT This exam was auto finalized to allow images to be scanned to PACS. us [facility] ORDERABLES Final Result documented in this encounter Visit Diagnoses Diagnosis Breast cancer screening by mammogram Breast cancer screening by mammogram Breast cancer screening by mammogram Breast cancer screening by mammogram documented in this encounter Additional Health Concerns Infection Onset Date Last Indicated Resolved Time R/O COVID-19 03/04/2020 03/05/2020 03/06/2020 3:31 AM VIDEOTAPE SALES REPRESENTATIVE documented as of this encounter Care Teams Chemistry Quality Control Technician Relationship Specialty Start Date End Date Elizabeth Orozco MD [address] [phone] PCP - General Family Practice 10/26/19 documented as of this encounter
--- NOTE | 2024-11-17 16:41 | W.ED.UPPEXIN ---
Documented by User: SHERON Austin 11/17/24 16:57 HPI - Extremity Injury (Upper) General: Chief Complaint: Extremity Injury, Upper Stated Complaint: R Wrist hurt Time Seen by Provider: 11/17/24 16:23 Source: patient Mode of arrival: ambulatory Limitations: no limitations History of Present Illness: Patient is a nice 63-year-old female presents to ED today for evaluation of a right wrist injury that she sustained just prior to arrival after accidentally tripping and falling. She denies any other injuries during the fall. MD complaint: injury to: right and wrist Onset (ago): hour(s) Other Extremity Injury: Right: wrist Place: home Severity: moderate Relieving factors: immobilization Exacerbating factors: movement of extremity Context: fall Associated symptoms: Reports no associated symptoms; Denies neck pain Related Data Home Medications ?Medication ?Instructions ?Recorded ?Confirmed cetirizine 10 mg capsule (Zyrtec) 10 mg PO QDAY 05/10/19 11/16/24 flaxseed oil 1,000 mg capsule 1,300 mg PO QDAY 05/10/19 11/16/24 fluticasone propionate 50 2 spray intranasal QDAY 05/10/19 11/16/24 mcg/actuation nasal spray,suspension (Allergy Relief (fluticasone)) magnesium 250 mg tablet 250 mg PO .HS 05/10/19 11/16/24 cholecalciferol (vitamin D3) 1,250 See Rx Instructions PO DAILY 12/22/21 11/16/24 mcg (50,000 unit) capsule zinc sulfate 25 mg zinc (110 mg) 25 mg PO DAILY 05/05/22 11/16/24 tablet (Orazinc) calcium carbonate (Calcium 600) 1,200 mg PO DAILY 11/18/22 11/16/24 Burn Jaro dietary supplement PO DAILY 09/11/24 11/16/24 turmeric 400 mg capsule mg PO DAILY 09/25/24 11/16/24 Previous Rx's ?Medication ?Instructions ?Recorded tretinoin 0.05 % topical cream 1 applic topical .qhs #45 grams 12/30/21 Titrating CPAP set to 6-16 with #1 ea 02/23/23 mask and supplies meloxicam 7.5 mg tablet See Rx Instructions .Route 01/05/24 .COMPLEX #90 tabs azelastine 137 mcg (0.1 %) nasal See Rx Instructions .Route 01/17/24 spray .COMPLEX #30 mL mupirocin 2 % topical ointment 1 applic topical BID #22 grams 06/13/24 shoe lift #1 ea 06/13/24 bupropion HCl 300 mg 24 hr tablet, 300 mg PO QAM #90 tabs 06/26/24 extended release (Wellbutrin XL) prazosin 5 mg capsule 5 mg PO .HS #90 caps 06/26/24 sertraline 100 mg tablet (Zoloft) 150 mg (1.5 x 100 mg) PO DAILY 06/26/24 #135 tabs trazodone 100 mg tablet 100 mg PO .HS #90 tabs 06/26/24 tizanidine 4 mg tablet 4 mg PO Q8H PRN muscle spasticity 07/06/24 30 days #90 tabs alendronate 70 mg tablet See Rx Instructions .Route 09/05/24 .COMPLEX #12 tabs aripiprazole 10 mg tablet (Abilify) 10 mg PO DAILY #30 tabs 11/08/24 hydroxyzine HCl 50 mg tablet 50 mg PO QID PRN anxiety #120 tabs 11/08/24 hydrocodone 5 mg-acetaminophen 325 1 tab PO .q 4-6 PRN pain #14 tabs 11/17/24 mg tablet Allergies Allergy/AdvReac Type Severity Reaction Status Date / Time phenazopyridine (From Allergy Severe Rash Verified 11/16/24 15:05 Pyridium) bodywide, Throat swelled bacitracin (From Neosporin AdvReac Intermediate Rash Verified 11/16/24 15:05 ([id number])) ibuprofen AdvReac Intermediate Diarrhea & Verified 11/16/24 15:05 Vomiting neomycin (From Neosporin AdvReac Intermediate Rash Verified 11/16/24 15:05 ([id number])) polymyxin B (From Neosporin AdvReac Intermediate Rash Verified 11/16/24 15:05 ([id number])) Review of Systems Musc: Reports: joint pain (R wrist) and joint swelling (R wrist); Denies: neck pain, back pain, extremity pain or extremity swelling Neuro: Denies: numbness in extremities or sensory changes PFSH ED PFSH: Medical History Right knee pain Basal cell carcinoma of skin of face Squamous cell skin cancer, face Left rotator cuff tear Trigger finger Carpal tunnel syndrome of left wrist Carpal tunnel syndrome of right wrist H/O needle biopsy Of right breast - benign 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 Psychiatric care History of sinus problem Biceps tendonosis of left shoulder Right shoulder injury Rupture of plantaris tendon Mumps Mononucleosis Eye injury Right eye History of chicken pox 5 or 6 y/o Surgical History Hx of colonoscopy History of total right knee replacement Right History of ankle surgery Left History of tubal ligation History of bunionectomy Right Family History Mother CAD (coronary artery disease), Onset Age: 60 Hyperlipidemia Hypertension Father Hypertension Grandmother Cancer Colon Cancer Brother Cancer Renal Cancer Social History Smoking and tobacco/nicotine status: never used tobacco/nicotine Quit status (tobacco/nicotine): has quit using Year quit tobacco: 05/2015 Second hand smoke exposure: No Alcohol intake: former Substance/Drug Use: never Adopted: No Caregiver/support person: No Lives independently: Yes Housing: House Marital status: Number of children: 1 Number of grandchildren: 0 Highest education level completed: Bachelor's Degree service: No Current occupational status: employed 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 Current occupational exposures/hazards: No Pets and animals: Yes Pets & animals: dog(s) Leisure activites: exercise, games and other Leisure activities details: Puzzles and puzzle books Sexually active: No Do you think of yourself as: Straight/Heterosexual Current gender identity: Female Erlinda/Alevism: None Special erlinda needs: No Agree to transfusion: Yes Female Reproductive History: Para: 1 Date of menopause: 10/10/12 Physical Exam Const: COMMON NORMALS: no acute distress, average body habitus, patient oriented x3, no limitations, healthy appearing, alert and well nourished Extremity: COMMON NORMALS: capillary refill normal GENERAL: Yes normal exam except as noted RIGHT UPPER EXTREMITY: Yes wrist (TTP/edema/deformity consistent with dehydration) Right wrist: Yes ROM (limited due to pain/fracture) and Yes neurovascular exam (normal ) Neuro: COMMON NORMALS: patient oriented x3, moves all extremities, no focal motor deficits and no sensory deficits noted SENSORIUM/ORIENTATION: Yes alert Course Vital Signs: Vital signs: Vital Signs Temperature 98.2 F 11/17/24 16:24 Pulse Rate 108 H 11/17/24 16:24 Respiratory Rate 16 11/17/24 16:24 Blood Pressure 130/83 11/17/24 16:24 Pulse Oximetry 96 11/17/24 16:24 Oxygen Delivery Me thod Room Air 11/17/24 16:24 MDM - Extremity Injury (Upper) Medical Decision Making Patient here for a right wrist injury related to a trip and fall. On XR imaging she has a distal radial fracture. Discussed with Dr. Roy to see if we needed to consciously sedate/reduce for better alignment. He felt we could splint and have her follow-up with ortho early next week. Case management referral placed for this. XR interpretation done by ED provider, pending radiology final review Discharge Plan Discharge Patient Disposition: Home Clinical Impression: Closed fracture of right distal radius Qualifiers: Encounter type: initial encounter Fracture morphology: other fracture Qualified Code(s): S52.591A - Other fractures of lower end of right radius, initial encounter for closed fracture Condition: Stable Prescriptions: New hydrocodone-acetaminophen 5-325 mg tablet 1 tab PO .q 4-6 PRN (Reason: pain) Qty: 14 0RF No Action Zyrtec 10 mg capsule 10 mg PO QDAY fluticasone propionate [Allergy Relief (fluticasone)] 50 mcg/actuation spray,suspension 2 spray INTRANASAL QDAY flaxseed oil 1,000 mg capsule 1,300 mg PO QDAY magnesium 250 mg tablet 250 mg PO .HS cholecalciferol (vitamin D3) 1,250 mcg (50,000 unit) capsule See Rx Instructions PO DAILY Rx Instructions: 5,000 I.U. orally daily; tretinoin 0.05 % cream 1 applic topical .qhs Qty: 45 4RF Rx Instructions: Apply pea-sized amount to clean, dry face nightly. Orazinc 25 mg zinc (110 mg) tablet 25 mg PO DAILY trazodone 100 mg tablet 100 mg PO .HS Qty: 90 3RF sertraline [Zoloft] 100 mg tablet 150 mg PO DAILY Qty: 135 3RF prazosin 5 mg capsule 5 mg PO .HS Qty: 90 3RF bupropion HCl [Wellbutrin XL] 300 mg tablet extended release 24 hr 300 mg PO QAM Qty: 90 3RF (DME) shoe lift See Rx Instructions .Route .MEDSUPPLY Qty: 1 0RF Rx Instructions: As directed mupirocin 2 % ointment 1 applic topical BID Qty: 22 0RF Burn Jaro dietary supplement PO DAILY hydroxyzine HCl 50 mg tablet 50 mg PO QID PRN (Reason: anxiety) Qty: 120 2RF aripiprazole [Abilify] 10 mg tablet 10 mg PO DAILY Qty: 30 2RF turmeric 400 mg capsule PO DAILY (DME) Titrating CPAP set to 6-16 with mask and supplies See Rx Instructions .Route .MEDSUPPLY Qty: 1 0RF Rx Instructions: As directed meloxicam 7.5 mg tablet See Rx Instructions .ROUTE .COMPLEX Qty: 90 1RF Dose Instruction: TAKE 1 TABLET BY MOUTH DAILY NEEDED FOR MUSCLE PAIN Rx Instructions: TAKE 1 TABLET BY MOUTH DAILY NEEDED FOR MUSCLE PAIN azelastine 137 mcg (0.1 %) spray,non-aerosol See Rx Instructions .ROUTE .COMPLEX Qty: 30 1RF Dose Instruction: ADMINISTER 2 SPRAYS INTO EACH NOSTRIL TWICE A DAY Rx Instructions: ADMINISTER 2 SPRAYS INTO EACH NOSTRIL TWICE A DAY tizanidine 4 mg tablet 4 mg PO Q8H PRN (Reason: muscle spasticity) 30 Days Qty: 90 0RF alendronate 70 mg tablet See Rx Instructions .ROUTE .COMPLEX Qty: 12 1RF Dose Instruction: TAKE 1 TABLET BY MOUTH ONE TIME PER WEEK Rx Instructions: TAKE 1 TABLET BY MOUTH ONE TIME PER WEEK Calcium 600 600 mg calcium (1,500 mg) Tablet 1,200 mg PO DAILY Discharge Orders: Discharge ED (Routine); Ordered 11/17/24 Ordered By: Mona Ty Referrals: Charlotte Siegel DO [Primary Care Provider, Family Practice] Patient Instructions: Wrist Fracture in Adults (ED), Opioid Safety, Pain Management, Patient Portal & Eliezer Instructions Activity Restrictions/Additional Instructions: As we discussed, x-ray shows a fracture to your distal radius (bone in your wrist). You will be splinted and case management should reach out to you early next week to help set you up with your follow-up orthopedic appointment. Please cigar packer and picker your pain medications and you may use them sparingly for severe pain. You may also ice and elevate the extremity to help with swelling. Print Language: Frisian Coding Level of Care Code ED Licensed Psychologist Manager for [facility] Fwd Documented by User: Nikos Roy DO 11/17/24 16:57 HPI - Extremity Injury (Upper) General: Chief Complaint: Extremity Injury, Upper Stated Complaint: R Wrist hurt Time Seen by Provider: 11/17/24 16:23 Related Data Home Medications ?Medication ?Instructions ?Recorded ?Confirmed cetirizine 10 mg capsule (Zyrtec) 10 mg PO QDAY 05/10/19 11/16/24 flaxseed oil 1,000 mg capsule 1,300 mg PO QDAY 05/10/19 11/16/24 fluticasone propionate 50 2 spray intranasal QDAY 05/10/19 11/16/24 mcg/actuation nasal spray,suspension (Allergy Relief (fluticasone)) magnesium 250 mg tablet 250 mg PO .HS 05/10/19 11/16/24 cholecalciferol (vitamin D3) 1,250 See Rx Instructions PO DAILY 12/22/21 11/16/24 mcg (50,000 unit) capsule zinc sulfate 25 mg zinc (110 mg) 25 mg PO DAILY 05/05/22 11/16/24 tablet (Orazinc) calcium carbonate (Calcium 600) 1,200 mg PO DAILY 11/18/22 11/16/24 Burn Jaro dietary supplement PO DAILY 09/11/24 11/16/24 turmeric 400 mg capsule mg PO DAILY 09/25/24 11/16/24 Previous Rx's ?Medication ?Instructions ?Recorded tretinoin 0.05 % topical cream 1 applic topical .qhs #45 grams 12/30/21 Titrating CPAP set to 6-16 with #1 ea 02/23/23 mask and supplies meloxicam 7.5 mg tablet See Rx Instructions .Route 01/05/24 .COMPLEX #90 tabs azelastine 137 mcg (0.1 %) nasal See Rx Instructions .Route 01/17/24 spray .COMPLEX #30 mL mupirocin 2 % topical ointment 1 applic topical BID #22 grams 06/13/24 shoe lift #1 ea 06/13/24 bupropion HCl 300 mg 24 hr tablet, 300 mg PO QAM #90 tabs 06/26/24 extended release (Wellbutrin XL) prazosin 5 mg capsule 5 mg PO .HS #90 caps 06/26/24 sertraline 100 mg tablet (Zoloft) 150 mg (1.5 x 100 mg) PO DAILY 06/26/24 #135 tabs trazodone 100 mg tablet 100 mg PO .HS #90 tabs 06/26/24 tizanidine 4 mg tablet 4 mg PO Q8H PRN muscle spasticity 07/06/24 30 days #90 tabs alendronate 70 mg tablet See Rx Instructions .Route 09/05/24 .COMPLEX #12 tabs aripiprazole 10 mg tablet (Abilify) 10 mg PO DAILY #30 tabs 11/08/24 hydroxyzine HCl 50 mg tablet 50 mg PO QID PRN anxiety #120 tabs 11/08/24 hydrocodone 5 mg-acetaminophen 325 1 tab PO .q 4-6 PRN pain #14 tabs 11/17/24 mg tablet Allergies Allergy/AdvReac Type Severity Reaction Status Date / Time phenazopyridine (From Allergy Severe Rash Verified 11/16/24 15:05 Pyridium) bodywide, Throat swelled bacitracin (From Neosporin AdvReac Intermediate Rash Verified 11/16/24 15:05 ([id number])) ibuprofen AdvReac Intermediate Diarrhea & Verified 11/16/24 15:05 Vomiting neomycin (From Neosporin AdvReac Intermediate Rash Verified 11/16/24 15:05 ([id number])) polymyxin B (From Neosporin AdvReac Intermediate Rash Verified 11/16/24 15:05 ([id number])) PFSH ED PFSH: Medical History Right knee pain Basal cell carcinoma of skin of face Squamous cell skin cancer, face Left rotator cuff tear Trigger finger Carpal tunnel syndrome of left wrist Carpal tunnel syndrome of right wrist H/O needle biopsy Of right breast - benign 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 Psychiatric care History of sinus problem Biceps tendonosis of left shoulder Right shoulder injury Rupture of plantaris tendon Mumps Mononucleosis Eye injury Right eye History of chicken pox 5 or 6 y/o Surgical History Hx of colonoscopy History of total right knee replacement Right History of ankle surgery Left History of tubal ligation History of bunionectomy Right Family History Mother CAD (coronary artery disease), Onset Age: 60 Hyperlipidemia Hypertension Father Hypertension Grandmother Cancer Colon Cancer Brother Cancer Renal Cancer Social History Smoking and tobacco/nicotine status: never used tobacco/nicotine Quit status (tobacco/nicotine): has quit using Year quit tobacco: 05/2015 Second hand smoke exposure: No Alcohol intake: former Substance/Drug Use: never Adopted: No Caregiver/support person: No Lives independently: Yes Housing: House Marital status: Number of children: 1 Number of grandchildren: 0 Highest education level completed: Bachelor's Degree service: No Current occupational status: employed 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 Current occupational exposures/hazards: No Pets and animals: Yes Pets & animals: dog(s) Leisure activites: exercise, games and other Leisure activities details: Puzzles and puzzle books Sexually active: No Do you think of yourself as: Straight/Heterosexual Current gender identity: Female Erlinda/Alevism: None Special erlinda needs: No Agree to transfusion: Yes Course Vital Signs: Vital signs: Vital Signs Temperature 98.2 F 11/17/24 16:24 Pulse Rate 108 H 11/17/24 16:24 Respiratory Rate 16 11/17/24 16:24 Blood Pressure 130/83 11/17/24 16:24 Pulse Oximetry 96 11/17/24 16:24 Oxygen Delivery Me thod Room Air 11/17/24 16:24 MDM - Extremity Injury (Upper) Medical Decision Making Patient here for a right wrist injury related to a trip and fall. On XR imaging she has a distal radial fracture. Discussed with Dr. Roy to see if we needed to consciously sedate/reduce for better alignment. He felt we could splint and have her follow-up with ortho early next week. Case management referral placed for this. Chart reviewed and patient discussed with midlevel. Agree with assessment and plan. Discharge Plan Discharge Patient Disposition: Home Clinical Impression: Closed fracture of right distal radius Qualifiers: Encounter type: initial encounter Fracture morphology: other fracture Qualified Code(s): S52.591A - Other fractures of lower end of right radius, initial encounter for closed fracture Condition: Stable Prescriptions: New hydrocodone-acetaminophen 5-325 mg tablet 1 tab PO .q 4-6 PRN (Reason: pain) Qty: 14 0RF No Action Zyrtec 10 mg capsule 10 mg PO QDAY fluticasone propionate [Allergy Relief (fluticasone)] 50 mcg/actuation spray,suspension 2 spray INTRANASAL QDAY flaxseed oil 1,000 mg capsule 1,300 mg PO QDAY magnesium 250 mg tablet 250 mg PO .HS cholecalciferol (vitamin D3) 1,250 mcg (50,000 unit) capsule See Rx Instructions PO DAILY Rx Instructions: 5,000 I.U. orally daily; tretinoin 0.05 % cream 1 applic topical .qhs Qty: 45 4RF Rx Instructions: Apply pea-sized amount to clean, dry face nightly. Orazinc 25 mg zinc (110 mg) tablet 25 mg PO DAILY trazodone 100 mg tablet 100 mg PO .HS Qty: 90 3RF sertraline [Zoloft] 100 mg tablet 150 mg PO DAILY Qty: 135 3RF prazosin 5 mg capsule 5 mg PO .HS Qty: 90 3RF bupropion HCl [Wellbutrin XL] 300 mg tablet extended release 24 hr 300 mg PO QAM Qty: 90 3RF (DME) shoe lift See Rx Instructions .Route .MEDSUPPLY Qty: 1 0RF Rx Instructions: As directed mupirocin 2 % ointment 1 applic topical BID Qty: 22 0RF Burn Jaro dietary supplement PO DAILY hydroxyzine HCl 50 mg tablet 50 mg PO QID PRN (Reason: anxiety) Qty: 120 2RF aripiprazole [Abilify] 10 mg tablet 10 mg PO DAILY Qty: 30 2RF turmeric 400 mg capsule PO DAILY (DME) Titrating CPAP set to 6-16 with mask and supplies See Rx Instructions .Route .MEDSUPPLY Qty: 1 0RF Rx Instructions: As directed meloxicam 7.5 mg tablet See Rx Instructions .ROUTE .COMPLEX Qty: 90 1RF Dose Instruction: TAKE 1 TABLET BY MOUTH DAILY NEEDED FOR MUSCLE PAIN Rx Instructions: TAKE 1 TABLET BY MOUTH DAILY NEEDED FOR MUSCLE PAIN azelastine 137 mcg (0.1 %) spray,non-aerosol See Rx Instructions .ROUTE .COMPLEX Qty: 30 1RF Dose Instruction: ADMINISTER 2 SPRAYS INTO EACH NOSTRIL TWICE A DAY Rx Instructions: ADMINISTER 2 SPRAYS INTO EACH NOSTRIL TWICE A DAY tizanidine 4 mg tablet 4 mg PO Q8H PRN (Reason: muscle spasticity) 30 Days Qty: 90 0RF alendronate 70 mg tablet See Rx Instructions .ROUTE .COMPLEX Qty: 12 1RF Dose Instruction: TAKE 1 TABLET BY MOUTH ONE TIME PER WEEK Rx Instructions: TAKE 1 TABLET BY MOUTH ONE TIME PER WEEK Calcium 600 600 mg calcium (1,500 mg) Tablet 1,200 mg PO DAILY Discharge Orders: Discharge ED (Routine); Ordered 11/17/24 Ordered By: Mona Ty Referrals: Charlotte Siegel DO [Primary Care Provider, Family Practice] Patient Instructions: Wrist Fracture in Adults (ED), Opioid Safety, Pain Management, Patient Portal & Eliezer Instructions Activity Restrictions/Additional Instructions: As we discussed, x-ray shows a fracture to your distal radius (bone in your wrist). You will be splinted and case management should reach out to you early next week to help set you up with your follow-up orthopedic appointment. Please cigar packer and picker your pain medications and you may use them sparingly for severe pain. You may also ice and elevate the extremity to help with swelling. Print Language: Frisian Coding Level of Care Code ED Licensed Psychologist Manager for Omar Salinas
--- NOTE | 2024-11-20 08:05 | DCPLANNER ---
messaged ortho for er f/u
== END 2024-11-17 17:09 | disposition home or self-care (01) ==
PROVIDERS: Emergency Provider Physician Assistant; PCP Family Medicine
DX: S52.591A Other fractures of lower end of right radius, initial encounter for closed fracture (principal); Z85.828 Personal history of other malignant neoplasm of skin; Z87.891 Personal history of nicotine dependence; W01.0XXA Fall on same level from slipping, tripping and stumbling without subsequent striking against object, initial encounter
CPT/HCPCS: 29125; 73110; 99283

== ENCOUNTER → 2024-11-20 07:21 | Outpatient (BNVA) | payer BC, SELFPAY ==
[2020-10-17 15:24] VITALS: BP 97/77; BMI 26.7
== END ==
PROVIDERS: PCP Family Medicine; Visit Provider Family Medicine
DX: Z13.6 Encounter for screening for cardiovascular disorders (principal); R53.83 Other fatigue
CPT/HCPCS: 80053; 80061; 84439; 84443; 85025

== ENCOUNTER → 2024-11-21 13:12 | Outpatient (BNVA) | payer BC, SELFPAY ==
[2020-10-17 15:24] VITALS: BP 97/77; BMI 26.7
== END ==
PROVIDERS: PCP Family Medicine; Referring Provider Physician Assistant; Visit Provider Orthopaedic Surgery
DX: S52.591A Other fractures of lower end of right radius, initial encounter for closed fracture (principal); X58.XXXA Exposure to other specified factors, initial encounter
CPT/HCPCS: 73110

== ENCOUNTER 2024-11-21 14:14 | Outpatient (CLI) | payer BC, SELFPAY ==
[2020-10-17 15:24] VITALS: BP 97/77; BMI 26.7
[2024-11-21 16:01] LABS: Glucose Urine UA Negative (Normal); Nitrate Urine Negative (Negative); Specific Gravity, Urine 1.007 (1.005-1.030)
[2024-11-21 16:03] LABS: Add Urine Microscopic? YES
== END 2024-11-21 14:15 | disposition home or self-care (01) ==
LOC: SPT 14:14
PROVIDERS: PCP Family Medicine; Visit Provider Orthopaedic Surgery
DX: Z46.89 Encounter for fitting and adjustment of other specified devices (principal); S52.591D Other fractures of lower end of right radius, subsequent encounter for closed fracture with routine healing; X58.XXXD Exposure to other specified factors, subsequent encounter
CPT/HCPCS: 81001; L3908

== ENCOUNTER 2024-11-24 07:17 | Day surgery (SDC) | payer BC, SELFPAY ==
[2020-10-17 15:24] VITALS: BP 97/77; BMI 26.7
[2024-11-24] VITALS (11 sets, daily range): BP systolic 96–124; BP diastolic 64–86; PULSE 70–89; RESP 16–20; TEMP 36.4–36.6; O2SAT 93–99; BMI 25.6
--- NOTE | 2024-11-24 08:45 | ANES.PREANE2 ---
Pre-Anesthetic Assessment Height/Weight: Height 1.57 m Weight 63.503 kg Temp Pulse Resp BP Pulse Ox O2 Del Method 97.6 F 79 18 102/64 95 Room Air 11/24/24 07:33 11/24/24 07:33 11/24/24 07:33 11/24/24 07:33 11/24/24 07:33 11/24/24 07:33 Preop Diagnosis: Right distal radius fracture Operation Date: 11/24/24 08:50 Proposed Procedures p ORIF Distal Radius(Right) - Irvin Floyd DO Familial anesthetic complications: None Was Beta Gus taken within 24 hours: N/A Was Clonidine taken within 24 hours: N/A Last intake: Intake Last Liquid Date 11/23/24 Last Liquid Time 22:00 Last Solid Date 11/23/24 Last Solid Time 18:00 Social No alcohol and No tobacco former smoker Exam alert, oriented x 3, clear to auscultation bilaterally and regular rate & rhythm Airway Mallampati: Class II Dentition: full Pulmonary Sleep Apnea Metabolic Thyroid Disease Anesthetic Plan ASA status: 2 Anesthesia: General and Regional (specify below) Risk of > 500 ml blood loss (7ml/kg in children): No Medications/Allergies Home Medications ?Medication ?Instructions ?Recorded ?Confirmed ?Last Taken ?Type cetirizine 10 mg capsule (Zyrtec) 10 mg PO QDAY 05/10/19 11/24/24 11/24/24 History 0645 flaxseed oil 1,000 mg capsule 1,300 mg PO QDAY 05/10/19 11/23/24 11/23/24 History fluticasone propionate 50 2 spray intranasal QDAY 05/10/19 11/23/24 11/16/22 History mcg/actuation nasal spray,suspension (Allergy Relief (fluticasone)) magnesium 250 mg tablet 250 mg PO .HS 05/10/19 11/23/24 11/23/24 History tretinoin 0.05 % topical cream 1 applic topical .qhs #45 grams 12/30/21 11/23/24 Unknown Rx zinc sulfate 25 mg zinc (110 mg) 25 mg PO DAILY 05/05/22 11/23/24 11/23/24 History tablet (Orazinc) calcium carbonate (Calcium 600) 1,200 mg PO DAILY 11/18/22 11/23/24 11/23/24 History Titrating CPAP set to 6-16 with #1 ea 02/23/23 11/22/24 Unknown Rx mask and supplies mupirocin 2 % topical ointment 1 applic topical BID #22 grams 06/13/24 11/23/24 Unknown Rx shoe lift #1 ea 06/13/24 11/22/24 Unknown Rx bupropion HCl 300 mg 24 hr tablet, 300 mg PO QAM #90 tabs 06/26/24 11/24/24 11/24/24 Rx extended release (Wellbutrin XL) 0645 prazosin 5 mg capsule 5 mg PO .HS #90 caps 06/26/24 11/23/24 11/23/24 Rx sertraline 100 mg tablet (Zoloft) 150 mg (1.5 x 100 mg) PO DAILY 06/26/24 11/23/24 Unknown Rx #135 tabs trazodone 100 mg tablet 100 mg PO .HS #90 tabs 06/26/24 11/23/24 11/23/24 Rx aripiprazole 10 mg tablet (Abilify) 10 mg PO DAILY #30 tabs 11/08/24 11/23/24 11/22/24 Rx hydrocodone 5 mg-acetaminophen 325 1 tab PO .q 4-6 PRN pain #14 tabs 11/17/24 11/24/24 11/24/24 Rx mg tablet 0645 Right Wrist Cock Up Splint #1 ea 11/21/24 11/22/24 Unknown Rx alendronate 70 mg tablet 70 mg PO .WKLY 11/23/24 11/23/24 11/13/24 History azelastine 137 mcg (0.1 %) nasal 2 spray intranasal BID 11/24/24 11/24/24 Unknown History spray meloxicam 7.5 mg tablet 7.5 mg PO DAILY PRN Muscle Pain 11/24/24 11/24/24 Unknown History Allergies Allergy/AdvReac Type Severity Reaction Status Date / Time phenazopyridine (From Allergy Severe Rash Verified 11/23/24 12:13 Pyridium) bodywide, Throat swelled bacitracin (From Neosporin AdvReac Intermediate Rash Verified 11/23/24 12:13 ([id number])) ibuprofen AdvReac Intermediate Diarrhea & Verified 11/23/24 12:13 Vomiting neomycin (From Neosporin AdvReac Intermediate Rash Verified 11/23/24 12:13 ([id number])) polymyxin B (From Neosporin AdvReac Intermediate Rash Verified 11/23/24 12:13 ([id number])) Current Medications Generic Name Dose Route Start Last Admin Trade Name Elginq PRN Reason Stop Dose Admin Sodium Chloride 1,000 mls @ 30 mls/hr 11/24/24 07:30 11/24/24 07:46 Sodium Chloride 0.9% IV 11/25/24 07:29 30 mls/hr .Q24H RIKA Administration PFSH Anesthesia Medical History Right knee pain Basal cell carcinoma of skin of face Squamous cell skin cancer, face Left rotator cuff tear Trigger finger Carpal tunnel syndrome of left wrist Carpal tunnel syndrome of right wrist H/O needle biopsy Of right breast - benign 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 Psychiatric care History of sinus problem Biceps tendonosis of left shoulder Right shoulder injury Rupture of plantaris tendon Mumps Mononucleosis Eye injury Right eye History of chicken pox 5 or 6 y/o Surgical History Hx of colonoscopy History of total right knee replacement Right History of ankle surgery Left History of tubal ligation History of bunionectomy Right Family History Mother CAD (coronary artery disease), Onset Age: 60 Hyperlipidemia Hypertension Father Hypertension Grandmother Cancer Colon Cancer Brother Cancer Renal Cancer Social History Smoking and tobacco/nicotine status: never used tobacco/nicotine Quit status (tobacco/nicotine): has quit using Year quit tobacco: 05/2015 Second hand smoke exposure: No Alcohol intake: former Substance/Drug Use: never Adopted: No Caregiver/support person: No Lives independently: Yes Housing: House Marital status: Number of children: 1 Number of grandchildren: 0 Highest education level completed: Bachelor's Degree service: No Current occupational status: employed 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 Current occupational exposures/hazards: No Pets and animals: Yes Pets & animals: dog(s) Leisure activites: exercise, games and other Leisure activities details: Puzzles and puzzle books Sexually active: No Do you think of yourself as: Straight/Heterosexual Current gender identity: Female Erlinda/Christian: None Special erlinda needs: No Agree to transfusion: Yes Female Reproductive History Para: 1 Date of menopause: 10/10/12 Anesthesia Procedures Nerve Block Nerve Block 1: Main Anesthesia: general anesthesia Time Out Performed: Yes Consent: requested by attending/covering physician, from patient, from other, risks and benefits reviewed and patient agrees to proceed Nerve block location: axillary (R) Anesthesia monitors applied: pulse oximetry, EKG, BP cuff and oxygen Nerve block position: supine Anesthetic Used: ropivicaine 0.5% (20 ml) and with decadron (4 mg) Ultrasound used to: recognize landmarks and visualize and ID brachial plexus Nerve Stimulator Used?: No Interscalene/Femoral BLK: 2 stimuplex 22 g needle used for position and inplane approach, visualize local anesthetic spread and no vascular puncture identified Injection: neg aspiration of heme Patient Tolerated Procedure: well Complications: none
--- NOTE | 2024-11-24 09:22 | W.PM.OPSUD ---
Surgery/Procedure H&P Update DATE OF PROCEDURE: November 24, 2024 DATE H&P PERFORMED: 11/21/24 H&P UPDATE INFORMATION: I have reviewed H&P completed within last 30 days, I have examined patient prior to procedure and No changes to prior documentation PREOP DIAGNOSIS: Right distal radius fracture PLANNED PROCEDURE: Operation Date: 11/24/24 08:50 Proposed Procedures p ORIF Distal Radius(Right) - Irvin Floyd DO
[2024-11-24] MEDS: ceFAZolin 2,000 mg SDV 2000 MG IVP (10:18)
--- NOTE | 2024-11-24 11:22 | XR_ITS ---
WS: [id number] Right wrist, C-arm fluoroscopy views, 11/24/2024 Clinical Data: OR PICS Comparison: Right wrist, 11/21/2024 Findings: Dr. Floyd placed a ventral plate and screws to reduce the distal right radial fracture. XR/XR wrist RT min 3V* [id number] Impression: Internal fixation of distal right radial fracture.
--- NOTE | 2024-11-24 11:27 | PM.OP ---
Operative Report Date of procedure: November 24, 2024 Pre-op diagnosis: Right distal radius fracture Post-op diagnosis: same Procedure done: Open reduction internal fixation of right distal radius fracture Surgeon: Irvin Floyd DO Estimated blood loss (mL): 5 Procedure: Open reduction internal fixation of right distal radius fracture Patient is brought to the operative suite after undergoing anesthesia patient was placed in the supine position. All areas of patient well-padded. Patient's prepped draped in Roso fashion. Incision was made over the volar wrist. The FCR tendon is identified and the interval between FCR and radial artery were made the pronator was taken ulnarly. Fracture was identified using a [place] the fracture was reduced. A Arthrex volar plate was then placed 4 screws were placed distally into the fracture fragment and then the fracture was reduced to get better volar tilt. Cortical screw was placed to suck the plate down to the bone and reduced fracture. And a proximal locking screw was used proximal to this fracture hole. Tube was replaced in the shaft. Wounds were irrigated AP lateral fluoroscopy showed the fracture and hardware in good position. Wound was then closed in a layered fashion with 2-0 Vicryl and Monocryl suture. Sterile dressings were applied and patient was transferred after placed in a volar splint to the PACU in stable condition.
--- NOTE | 2024-11-24 12:30 | ANE.PACU2 ---
Inpatient post-anesthesia follow up: Airway intact: Yes Vital signs: Temperature 97.5 F Pulse Rate 87 Respiratory Rate 17 Blood Pressure 106/64 Pulse Oximetry 94 Oxygen Delivery Me thod Room Air Oxygen Flow Rate Fraction of Inspir ed Oxygen Hydration adequate: Yes Nausea and vomiting: No Pain level: 1 Mental status: Baseline
== END 2024-11-24 12:28 | disposition home or self-care (01) ==
PROVIDERS: PCP Family Medicine; Visit Provider Orthopaedic Surgery
PROC: (CPT 25607; principal; 2024-11-24 08:40)
DX: S52.501A Unspecified fracture of the lower end of right radius, initial encounter for closed fracture (principal); X58.XXXA Exposure to other specified factors, initial encounter; G47.30 Sleep apnea, unspecified; E07.9 Disorder of thyroid, unspecified
CPT/HCPCS: 25607; 73110; 76000; C1713; J0690; J1100; J2250; J2405; J2704; J3010; J7030; J9999

== ENCOUNTER → 2024-12-07 08:28 | Outpatient (BNVA) | payer BC, SELFPAY ==
[2020-10-17 15:24] VITALS: BP 97/77; BMI 26.7
== END ==
PROVIDERS: PCP Family Medicine; Visit Provider Orthopaedic Surgery
DX: Z98.890 Other specified postprocedural states (principal)
CPT/HCPCS: 73110

== ENCOUNTER → 2025-01-09 16:16 | Outpatient (BNVA) | payer BC, SELFPAY ==
[2020-10-17 15:24] VITALS: BP 97/77; BMI 26.7
== END ==
PROVIDERS: PCP Family Medicine; Visit Provider Orthopaedic Surgery
DX: Z98.890 Other specified postprocedural states (principal)
CPT/HCPCS: 73110

== ENCOUNTER → 2025-02-13 14:56 | Outpatient (BNVA) | payer BC, SELFPAY ==
[2020-10-17 15:24] VITALS: BP 97/77; BMI 26.7
== END ==
PROVIDERS: PCP Family Medicine; Visit Provider Orthopaedic Surgery
DX: Z98.890 Other specified postprocedural states (principal)
CPT/HCPCS: 73110

== ENCOUNTER → 2025-03-13 15:17 | Outpatient (BNVA) | payer BC, SELFPAY ==
[2025-03-13 15:22] VITALS: BP 97/77; BMI 26.7
== END ==
PROVIDERS: PCP Family Medicine; Visit Provider Family Medicine
DX: Z13.6 Encounter for screening for cardiovascular disorders (principal); Z01.818 Encounter for other preprocedural examination
CPT/HCPCS: 80053; 85025

== ENCOUNTER 2025-03-22 05:33 | Day surgery (SDC) | payer BC, SELFPAY ==
[2020-10-17 15:24] VITALS: BP 97/77; BMI 26.7
[2025-03-13 15:22] VITALS: BP 97/77; BMI 26.7
[2025-03-22] VITALS (7 sets, daily range): BP systolic 101–160; BP diastolic 67–87; PULSE 65–71; RESP 16–20; TEMP 36.3–36.6; O2SAT 93–96; BMI 27.1
--- NOTE | 2025-03-22 06:23 | ANES.PREANE2 ---
Pre-Anesthetic Assessment Height/Weight: Height 5 ft 2 in Weight 148 lb Temp Pulse Resp BP Pulse Ox O2 Del Method 97.9 F 66 17 101/67 93 Room Air 03/22/25 06:07 03/22/25 06:07 03/22/25 06:07 03/22/25 06:07 03/22/25 06:07 03/22/25 06:09 Preop Diagnosis: Trigger finger Operation Date: 03/22/25 07:00 Proposed Procedures p LEFT Thumb AND LEFT Index Finger AND RIGHT Thumb Trigger Finger Release(Bilateral) - Gildardo Low MD Was Beta Gus taken within 24 hours: N/A Was Clonidine taken within 24 hours: N/A Last intake: Intake Last Liquid Date 03/21/25 Last Liquid Time 21:00 Last Solid Date 03/21/25 Last Solid Time 18:00 Social No alcohol and No tobacco Quit smoking 10 years ago Exam alert, oriented x 3, clear to auscultation bilaterally and regular rate & rhythm Airway Submandibular: within normal limits Cervical ROM: within normal limits Mallampati: Class I Dentition: full Anesthetic Plan ASA status: 2 Anesthesia: Choice Other: No prior issues with anesthesia NPO since yesterday evening Prior smoker, quit 10 years ago [place], occasional CPAP use Denies any cardiac issues METs greater than 4 Labs reviewed from 03/13/2025 and acceptable for procedure Medications/Allergies Home Medications ?Medication ?Instructions ?Recorded ?Confirmed ?Last Taken ?Type cetirizine 10 mg capsule (Zyrtec) 10 mg PO QDAY 05/10/19 03/22/25 03/22/25 History flaxseed oil 1,000 mg capsule 1,300 mg PO QDAY 05/10/19 03/21/25 03/21/25 History fluticasone propionate 50 2 spray intranasal QDAY 05/10/19 03/21/25 03/20/25 History mcg/actuation nasal spray,suspension (Allergy Relief (fluticasone)) magnesium 250 mg tablet 250 mg PO .HS 05/10/19 03/21/25 03/20/25 History tretinoin 0.05 % topical cream 1 applic topical .qhs #45 grams 12/30/21 03/21/25 Unknown Rx zinc sulfate 25 mg zinc (110 mg) 25 mg PO DAILY 05/05/22 03/21/25 03/21/25 History tablet (Orazinc) calcium carbonate (Calcium 600) 1,200 mg PO DAILY 11/18/22 03/21/25 03/21/25 History Titrating CPAP set to 6-16 with #1 ea 02/23/23 03/19/25 Unknown Rx mask and supplies mupirocin 2 % topical ointment 1 applic topical BID #22 grams 06/13/24 03/21/25 Unknown Rx shoe lift #1 ea 06/13/24 03/19/25 Unknown Rx bupropion HCl 300 mg 24 hr tablet, 300 mg PO QAM #90 tabs 06/26/24 03/22/25 03/22/25 Rx extended release (Wellbutrin XL) prazosin 5 mg capsule 5 mg PO .HS #90 caps 06/26/24 03/21/25 03/20/25 Rx sertraline 100 mg tablet (Zoloft) 150 mg (1.5 x 100 mg) PO DAILY 06/26/24 03/21/25 03/20/25 Rx #135 tabs trazodone 100 mg tablet 100 mg PO .HS #90 tabs 06/26/24 03/21/25 03/20/25 Rx Right Wrist Cock Up Splint #1 ea 11/21/24 03/19/25 Unknown Rx alendronate 70 mg tablet 70 mg PO .WKLY 11/23/24 03/21/25 11/13/24 History azelastine 137 mcg (0.1 %) nasal 2 spray intranasal BID 11/24/24 03/21/25 03/20/25 History spray meloxicam 7.5 mg tablet 7.5 mg PO DAILY PRN Muscle Pain 11/24/24 03/21/25 Unknown History Held on 11/24/24. Instructions: Resume on 11/26/24. aripiprazole 10 mg tablet (Abilify) 10 mg PO DAILY #90 tabs 12/18/24 03/21/25 03/21/25 Rx [place] vax #1 ea 01/04/25 03/19/25 Unknown Rx Allergies Allergy/AdvReac Type Severity Reaction Status Date / Time phenazopyridine (From Allergy Severe Rash Verified 03/19/25 14:53 Pyridium) bodywide, Throat swelled bacitracin (From Neosporin AdvReac Intermediate Rash Verified 03/19/25 14:53 ([id number])) ibuprofen AdvReac Intermediate Diarrhea & Verified 03/19/25 14:53 Vomiting neomycin (From Neosporin AdvReac Intermediate Rash Verified 03/19/25 14:53 ([id number])) polymyxin B (From Neosporin AdvReac Intermediate Rash Verified 03/19/25 14:53 ([id number])) [facility] Anesthesia Medical History Right knee pain Basal cell carcinoma of skin of face Squamous cell skin cancer, face Left rotator cuff tear Trigger finger of all digits of right hand Carpal tunnel syndrome of left wrist Carpal tunnel syndrome of right wrist H/O needle biopsy Of right breast - benign 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 Psychiatric care History of sinus problem Biceps tendonosis of left shoulder Right shoulder injury Rupture of plantaris tendon Mumps Mononucleosis Eye injury Right eye History of chicken pox 5 or 6 y/o Surgical History Hx of colonoscopy History of total right knee replacement Right History of ankle surgery Left History of tubal ligation History of bunionectomy Right Family History Mother CAD (coronary artery disease), Onset Age: 60 Hyperlipidemia Hypertension Father Hypertension Grandmother Cancer Colon Cancer Brother Cancer Renal Cancer Social History Smoking and tobacco/nicotine status: former use of tobacco/nicotine Quit status (tobacco/nicotine): has quit using Year quit tobacco: 05/2015 Second hand smoke exposure: No Alcohol intake: former Substance/Drug Use: never Adopted: No Caregiver/support person: No Lives independently: Yes Housing: House Marital status: Number of children: 1 Number of grandchildren: 0 Highest education level completed: Bachelor's Degree service: No Current occupational status: employed 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
--- NOTE | 2025-03-22 06:42 | W.PM.OPSUD ---
Surgery/Procedure H&P Update DATE OF PROCEDURE: March 22, 2025 DATE H&P PERFORMED: 03/13/25 H&P UPDATE INFORMATION: I have reviewed H&P completed within last 30 days, I have examined patient prior to procedure and No changes to prior documentation PREOP DIAGNOSIS: Trigger fingers PLANNED PROCEDURE: Operation Date: 03/22/25 07:00 Proposed Procedures p LEFT Thumb AND LEFT Index Finger AND RIGHT Thumb Trigger Finger Release(Bilateral) - Gildardo Low MD
[2025-03-22] MEDS: ceFAZolin 2,000 mg SDV 2000 MG IVP (07:05)
[2025-03-22] MEDS: BUPivacaine 0.5% INJ 30 mL 7 ML INJECTION (07:38)
--- NOTE | 2025-03-22 07:55 | PM.OP ---
Operative Report Date of procedure: March 22, 2025 Surgeon: Gildardo Low MD Procedure: Preoperative diagnosis: Trigger finger of the right thumb, left thumb, left index finger Postoperative diagnosis: Same Procedure: Trigger finger releases of the right thumb, left thumb, left index finger Surgeon: Gildardo Low MD Anesthesia: IV sedation with local anesthetic EBL: None Indications: Anahi is a 64-year-old white female presented to orthopedic clinics with trigger thumbs and a trigger index finger on the left. She has previously had trigger finger releases in the past had good success with this and now is requesting to have these done since they are interfering with activities of daily living causing pain and discomfort. Clinical exam was consistent with trigger fingers of the right thumb, left thumb, left index finger. Therefore surgical release was offered. All risk benefits treatment terms were discussed patient was agreeable to this at this time. Procedure: After obtaining consent patient taken the operative room placed in the operative table supine position IV sedation was administered. Arm boards were placed on either side the table and both arms were prepped and draped in usual fashion. After surgical timeout the right hand was addressed first. Half percent Marcaine plain was injected into the volar surface of the base of the thumb at its flexion crease at the level of the A1 cinthya. Once [place] was achieved incision was made through the flexion crease measuring proxy 1 cm in length. Blunt and sharp dissection with small tenotomy scissors down to the tendon sheath was identified. Sheath is opened longitudinally with a #15 blade. Tenotomy scissors then used to complete the dissection of the A1 cinthya. Manipulation of the thumb demonstrated no further triggering of the tendon and nodule within the tendon could be identified without any impedance. Wound was then closed with 3-0 nylon horizontal mattress sutures. Left hand was then addressed. Esmarch wrap was used on this hand and Esmarch was used along the forearm for tourniquet. Half percent Marcaine was injected on the base of the thumb and base of the index finger at the level of the A1 pulleys. Once good anesthetic effect was achieved incision was made through the flexion crease of the base of the thumb at the level of the A1 cinthya. Sharp dissecting him down to subcutaneous tissues blunt sharp dissection with tenotomy scissors were then used to identify the tendon sheath. Tendon sheath was divided with a #15 blade longitudinally. Tenotomy scissors then used to split this A1 cinthya for the remainder of the distance. Thumb put the range of motion no further triggering identified. Incision was then made at the base of the index finger and palmar flexion crease at the level A1 cinthya. Blunt sharp dissection and tenotomy scissors down to tendon sheath was done tendon sheath was opened longitudinally with a #15 blade. And tenotomy scissors again were used to divide the A1 cinthya. Index finger split through range of motion demonstrated no further triggering. These 2 wounds are now closed with 3-0 nylon horizontal mattress sutures. Wounds are cleaned and dry dressed in Xeroform gauze sterile gauze dressing Kerlix wrap and Ryan wrap for compression. Patient was awakened transferred to cover room stable condition
--- NOTE | 2025-03-22 08:58 | ANE.PACU2 ---
Inpatient post-anesthesia follow up: Airway intact: Yes Vital signs: Temperature 97.8 F Pulse Rate 68 Respiratory Rate 17 Blood Pressure 153/75 Pulse Oximetry 96 Oxygen Delivery Me thod Room Air Oxygen Flow Rate Fraction of Inspir ed Oxygen Hydration adequate: Yes Nausea and vomiting: No Pain level: 1 Mental status: Baseline
== END 2025-03-22 08:58 | disposition home or self-care (01) ==
PROVIDERS: PCP Family Medicine; Visit Provider Orthopaedic Surgery
PROC: (CPT 26055; principal; 2025-03-22 07:00)
DX: M65.311 Trigger thumb, right thumb (principal); M65.312 Trigger thumb, left thumb; M65.322 Trigger finger, left index finger; G47.33 Obstructive sleep apnea (adult) (pediatric); Z99.89 Dependence on other enabling machines and devices; Z87.891 Personal history of nicotine dependence; Z85.828 Personal history of other malignant neoplasm of skin
CPT/HCPCS: 26055 ×3; J0690; J2250; J2704; J3010; J3490; J7030

== ENCOUNTER 2025-03-23 12:43 | Outpatient (CLI) | payer BC, SELFPAY ==
[2025-03-13 15:22] VITALS: BP 97/77; BMI 26.7
--- NOTE | 2025-03-23 13:00 | CT_ITS ---
WS: [id number] LDCT LUNG CANCER SCREENING HISTORY: screening TECHNIQUE: Axial imaging performed from the apices to 1 cm below the costophrenic angles. Coronal and sagittal reformats are submitted with axial MIP series. All CT scans at [facility] use at least one of these dose optimization techniques: automated exposure control; mA and/or kV adjustment per patient size (includes targeted exams where dose is matched to clinical indication); or iterative reconstruction. DLP: 61.97 mGy.cm DIvol: Mean CTDIvol: 0.90 (mGy),Mean CTDIvol: 1.30 (mGy) COMPARISON: None available. Diagnostic quality: Satisfactory Lungs: Mild changes of centrilobular emphysema. 2 mm nodule periphery RIGHT upper lobe, image 38 of series 4. Mild dependent changes at the lung bases. No masses. Heart: Normal size heart with no pericardial effusion.. Other findings: No adenopathy. Normal size aorta and pulmonary artery. Visualized adrenal glands are negative. No destructive bone lesions. CT/CT lung screening [id number] IMPRESSION: LUNG-RADS: 2-Benign Appearance or Behavior FOLLOW UP: 12 Month: Continue annual screening with LDCT OTHER FINDINGS (S MODIFIER): None.
== END 2025-03-23 12:44 | disposition home or self-care (01) ==
LOC: RAD 12:44
PROVIDERS: PCP Family Medicine; Visit Provider Family Medicine
DX: Z12.2 Encounter for screening for malignant neoplasm of respiratory organs (principal); Z87.891 Personal history of nicotine dependence; J43.2 Centrilobular emphysema; R91.1 Solitary pulmonary nodule; R91.8 Other nonspecific abnormal finding of lung field
CPT/HCPCS: 71271